=== PATIENT | female | born 1985 | race Caucasian/White ===

== ENCOUNTER → 2016-05-19 | Outpatient (CLI) | payer OTHER ==
[~2016-05-19] MED LIST: FLUO10CA19 PO; FLUO20TA28 PO
--- OUTSIDE RECORDS SUMMARY | 2016-05-19 12:35 | XMS REPORT | Continuity of Care Document ---
Author Author [facility] Organization [facility] Address Unknown Phone Unavailable Support Name Relationship Address Phone DANIELA CAMERON Caregiver [address] [place] [address] MINI TAVAREZ Caregiver [address] [place] [address] SHEPARDKYLEE Next Of Kin [address] [place] [address] Insurance Providers Payer Name Policy Number Subscriber Name Relationship Self Pay Pending Kym Apprv [id number] Elmira Crabtree 18 Self / Same As Patient Advance Directives Directive Response Recorded Date/Time Advance Directives No 05/08/14 1:15pm Health Care Power of Mica Plate Layer No 05/08/14 1:15pm Organ Donor No 05/08/14 1:15pm Problems No known problems or medical conditions. Medications Medication Dose Route Sig Days/Qty Instructions Order Date Discontinued Date Status Fluoxetine HCl (Prozac) 1 Each PO DAILY 05/08/14 Active Social History Social History Problem Response Recorded Date/Time Alcohol Use Denies Use 03/14/2014 5:47pm Recreational Drug Use No 03/14/2014 5:47pm Recent Foreign Travel N [place] 03/26/2014 1:31pm Hospital Discharge Instructions No hospital discharge instructions. Plan of Care No plan of care. Functional Status No functional status results. Allergies, Adverse Reactions, Alerts Allergen Type Severity Reaction Status Last Updated PEROXIDE Allergy Unknown Active 03/14/14 PLASTIC TAPE Allergy Unknown Active 03/14/14 Immunizations No immunization records. Vital Signs No known vital signs results. Results Laboratory Results Test Name Result Units Flags Reference Collection Date/Time Result Date/ Time Comments White Blood Count 5.5 10^3/uL 4.3-11.0 03/26/2014 1:53pm 03/26/2014 1: 57pm Red Blood Count 3.84 10^6/uL L 4.35-5.85 03/26/2014 1:53pm 03/26/2014 1: 57pm Hemoglobin 10.9 G/DL L 11.5-16.0 03/26/2014 1:53pm 03/26/2014 1:57pm Hematocrit 35 % 35-52 03/26/2014 1:53pm 03/26/2014 1:57pm Mean Corpuscular Volume 90 FL 80-99 03/26/2014 1:53pm 03/26/2014 1: 57pm Mean Corpuscular Hemoglobin 28 PG 25-34 03/26/2014 1:53pm 03/26/2014 1: 57pm Mean Corpuscular Hemoglobin Concent 32 G/DL 32-36 03/26/2014 1:53pm 1:57pm Red Cell Distribution Width 13.2 % 10.0-14.5 03/26/2014 1:53pm 2013 1:57pm Platelet Count 215 10^3/uL 130-400 03/26/2014 1:53pm 03/26/2014 1:57pm Mean Platelet Volume 10.1 FL 7.4-10.4 03/26/2014 1:53pm 03/26/2014 1: 57pm Neutrophils (%) (Auto) 60 % 42-75 03/26/2014 1:53pm 03/26/2014 1:57pm Lymphocytes (%) (Auto) 29 % 12-44 03/26/2014 1:53pm 03/26/2014 1:57pm Monocytes (%) (Auto) 8 % 0-12 03/26/2014 1:53pm 03/26/2014 1:57pm Eosinophils (%) (Auto) 2 % 0-10 03/26/2014 1:53pm 03/26/2014 1:57pm Basophils (%) (Auto) 0 % 0-10 03/26/2014 1:53pm 03/26/2014 1:57pm Neutrophils # (Auto) 3.3 X 10^3 1.8-7.8 03/26/2014 1:53pm 03/26/2014 1: 57pm Lymphocytes # (Auto) 1.6 X 10^3 1.0-4.0 03/26/2014 1:53pm 03/26/2014 1: 57pm Monocytes # (Auto) 0.5 X 10^3 0.0-1.0 03/26/2014 1:53pm 03/26/2014 1: 57pm Eosinophils # (Auto) 0.1 10^3/uL 0.0-0.3 03/26/2014 1:53pm 03/26/2014 1 :57pm Basophils # (Auto) 0.0 10^3/uL 0.0-0.1 03/26/2014 1:53pm 03/26/2014 1: 57pm Sodium Level 140 MMOL/L 135-145 03/26/2014 1:53pm 03/26/2014 2:31pm Potassium Level 3.6 MMOL/L 3.6-5.0 03/26/2014 1:53pm 03/26/2014 2:31pm Chloride Level 107 MMOL/L 98-107 03/26/2014 1:53pm 03/26/2014 2:31pm Carbon Dioxide Level 24 MMOL/L 21-32 03/26/2014 1:53pm 03/26/2014 2: 31pm Blood Urea Nitrogen 10 MG/DL 7-18 03/26/2014 1:53pm 03/26/2014 2:31pm Creatinine 0.70 MG/DL 0.60-1.30 03/26/2014 1:53pm 03/26/2014 2:31pm BUN/Creatinine Ratio 14 03/26/2014 1:53pm 03/26/2014 2:31pm Estimat Glomerular Filtration Rate > 60 03/26/2014 1:53pm 2013 2:31pm GFR INTERPRETIVE DATA UNITS FOR ESTIMATED GFR (eGFR): mL/min/1.73 M2 REFERENCE RANGE FOR ESTIMATED GFR (eGFR) eGFR NORMAL eGFR >60 MODERATELY DECREASED eGFR 30-59 SEVERLY DECREASED eGFR 15-29 KIDNEY FAILURE <15 (OR DIALYSIS) Glucose Level 92 MG/DL 70-105 03/26/2014 1:53pm 03/26/2014 2:31pm Calcium Level 8.6 MG/DL 8.5-10.1 03/26/2014 1:53pm 03/26/2014 2:31pm Total Bilirubin 0.6 MG/DL 0.1-1.0 03/26/2014 1:53pm 03/26/2014 2:31pm Alkaline Phosphatase 51 U/L 40-136 03/26/2014 1:53pm 03/26/2014 2:31pm Aspartate Amino Transf (AST/SGOT) 14 U/L 5-34 03/26/2014 1:53pm 2013 2:31pm Alanine Aminotransferase (ALT/SGPT) 11 U/L 0-55 03/26/2014 1:53pm 03/26 2:31pm Total Protein 6.6 G/DL 6.4-8.2 03/26/2014 1:53pm 03/26/2014 2:31pm Albumin 4.0 G/DL 3.2-4.5 03/26/2014 1:53pm 03/26/2014 2:31pm Procedures No known history of procedures. Encounters Encounter Location Date/Time Discharged Recurring Via [facility] 03/26/14 1:32pm
[2016-05-19 13:09] LABS: BASOPHILS % (AUTO) 1 % (0-10); EOSINOPHILS # (AUTO) 0.1 10^3/uL (0.0-0.3); EOSINOPHILS % (AUTO) 2 % (0-10); LYMPHOCYTES # (AUTO) 1.8 X 10^3 (1.0-4.0); LYMPHOCYTES % (AUTO) 36 % (12-44); MEAN CORPUSCULAR HEMOGLOBIN 29 PG (25-34); MEAN CORPUSCULAR HGB CONC 34 G/DL (32-36); MEAN CORPUSCULAR VOLUME 85 FL (80-99); MEAN PLATELET VOLUME 11.4 FL (7.4-10.4); MONOCYTES # (AUTO) 0.5 X 10^3 (0.0-1.0); MONOCYTES % (AUTO) 11 % (0-12); NEUTROPHILS # (AUTO) 2.6 X 10^3 (1.8-7.8); NEUTROPHILS % (AUTO) 51 % (42-75); PLATELET COUNT 154 10^3/uL (130-400); RED BLOOD COUNT 5.07 10^6/uL (4.35-5.85); RED CELL DISTRIBUTION WIDTH 12.9 % (10.0-14.5); WHITE BLOOD COUNT 5.1 10^3/uL (4.3-11.0)
[2016-05-19 14:24] LABS: ALANINE AMINOTRANSFERASE 12 U/L (0-55); ALBUMIN 4.3 G/DL (3.2-4.5); ANION GAP 8 MMOL/L (5-14); ASPARTATE AMINO TRANSFERASE 19 U/L (5-34); BILIRUBIN,TOTAL 0.8 MG/DL (0.1-1.0); BLOOD UREA NITROGEN 10 MG/DL (7-18); BUN/CREATININE RATIO 12; CALCIUM 8.9 MG/DL (8.5-10.1); CARBON DIOXIDE 26 MMOL/L (21-32); CHLORIDE 106 MMOL/L (98-107); CREATININE SERUM 0.84 MG/DL (0.60-1.30); GFR ESTIMATED > 60; GLUCOSE 86 MG/DL (70-105); SODIUM 140 MMOL/L (135-145)
[2016-05-19 14:45] LABS: THYROID STIMULATING HORMONE 1.83 UIU/ML (0.35-4.94)
== END ==
LOC: ONC 12:32
PROVIDERS: ATTEND Internal Medicine Hematology & Oncology
DX: Z08 Encounter for follow-up examination after completed treatment for malignant neoplasm (principal); Z85.038 Personal history of other malignant neoplasm of large intestine; Z86.010 Personal history of colon polyps; Z80.0 Family history of malignant neoplasm of digestive organs; Z92.21 Personal history of antineoplastic chemotherapy
CPT/HCPCS: 36415; 80053; 82378; 84443; 85025; 99213

== ENCOUNTER → 2016-06-02 | Outpatient (CLI) | payer OTHER ==
[~2016-06-02] MED LIST changes: +BARIUM SUSPENSION 2.1% (VANILLA SILQ) 450 ML PO ONE; +IOHEXOL 350 MG/ML 100 ML (OMNIPAQUE 350) VIAL IV ONE; +NS 100 ML (IVPB) BAG IV ONE
--- OUTSIDE RECORDS SUMMARY | 2016-06-02 10:23 | XMS REPORT | Continuity of Care Document ---
Author Author [facility] Organization [facility] Address Unknown Phone Unavailable Support Name Relationship Address Phone DANIELA CAMERON Caregiver [address] [place] [address] MINI TAVAREZ Caregiver [address] [place] [address] SHEPARD[place]LEE Next Of Kin [address] [place] [address] Insurance Providers Payer Name Policy Number Subscriber Name Relationship Self Pay Pending Kym Apprv [id number] Elmira Crabtree 18 Self / Same As Patient Advance Directives Directive Response Recorded Date/Time Advance Directives No 05/08/14 1:15pm Health Care Power of Marriage And Family Teacher No 05/08/14 1:15pm Organ Donor No 05/08/14 [...] Encounters Encounter Location Date/Time Discharged Recurring [facility] 03/26/14 1:32pm
--- NOTE | 2016-06-02 12:05 | Diagnostic Imaging Report ---
PROCEDURE: CT abdomen and pelvis with contrast. TECHNIQUE: Multiple contiguous axial images were obtained through the abdomen and pelvis after administration of intravenous contrast. INDICATION: Colorectal carcinoma. FINDINGS: The liver is homogeneous and is not enlarged. The liver appears similar to the prior CT abdomen/pelvis exam of 12/12/2010. The spleen, pancreas, adrenals, gallbladder, kidneys, aorta, and inferior vena cava are also unchanged when compared to the prior exam. The stomach is not well distended and consequently difficult to assess. The rectosigmoid portion of the colon is distended by gas, contrast, and fecal material. Surgical clips are also again seen about the rectosigmoid junction. As noted on the prior exam, the uterus is shifted to the right. There is no mass involving the uterus. There may be a few small cysts arising from both ovaries. These seem similar to the prior exam. The urinary bladder is grossly unremarkable. There is no pelvic mass or free fluid collection noted. The appendix was not well visualized, but there are no indirect signs of acute appendicitis. The lung bases are clear. The bone windows show no sign of a fracture or of a destructive lesion. IMPRESSION: 1. There is no acute abnormality of the abdomen or pelvis. There is no sign of metastatic disease either. 2. When compared to the previous study, there does not appear to have been any significant change. Dictated by: Dictated on workstation # [id number]
--- NOTE | 2016-06-02 12:47 | Diagnostic Imaging Report ---
PROCEDURE: US Thyroid. TECHNIQUE: Multiple real-time grayscale images were obtained of the thyroid in various projections. INDICATION: Abnormal Thyroid laboratory values. FINDINGS: There are no previous thyroid ultrasound examinations available for comparison. In reviewing the CT chest exam of 12/12/2010, the thyroid gland did not seem to be enlarged and there was no definite discrete mass involving either lobe. On this study, the thyroid gland is not enlarged. The right lobe measures 4.9 x 1.3 x 1.4 cm while the left lobe is estimated to be 4.8 x 1.5 x 1.3 cm (normal 4-5 x 2 x 2 cm or less). There are small subcentimeter hypoechoic areas in each lobe of the thyroid. This includes a 3 x 4 x 3 mm hypoechoic area in the midportion of the right lobe and a 7 x 5 x 6 mm hypoechoic area in the midportion of the left lobe. These hypoechoic areas are of uncertain etiology but most likely benign. If further evaluation is desired, then a short-term (6-month) follow-up thyroid ultrasound exam should be obtained. IMPRESSION: The thyroid gland is not enlarged. The small subcentimeter hypoechoic lesions in each lobe of the thyroid are of uncertain etiology although most likely benign. Recommendations as above. Dictated by: Dictated on workstation # [id number]
== END ==
LOC: RAD 10:19
PROVIDERS: ATTEND Nurse Practitioner Adult Health
DX: C18.7 Malignant neoplasm of sigmoid colon (principal); D12.6 Benign neoplasm of colon, unspecified
CPT/HCPCS: 74177; 76536

== ENCOUNTER 2016-08-03 11:00 | Outpatient (CLI) | payer SELFPAY ==
[~2016-08-03] VITALS: Ht 167.6 cm; Wt 86.2 kg
[~2016-08-03 11:00] MED LIST changes: -BARIUM SUSPENSION 2.1% (VANILLA SILQ) 450 ML PO ONE; -IOHEXOL 350 MG/ML 100 ML (OMNIPAQUE 350) VIAL IV ONE; -NS 100 ML (IVPB) BAG IV ONE
== END 2016-08-03 12:26 ==
LOC: PREOP 11:00
PROVIDERS: ATTEND Surgery
DX: Z01.818 Encounter for other preprocedural examination (principal); Z85.038 Personal history of other malignant neoplasm of large intestine

== ENCOUNTER 2016-08-04 07:15 | Day surgery (SDC) | payer OTHER ==
[~2016-08-04] VITALS: Ht 167.6 cm; Wt 86.2 kg
[2016-08-04] MEDS ORDERED: NS IV 1000 ML 1,000 ML IV STA (07:21)
[2016-08-04] MEDS ORDERED: HURRICAINE EXT TUBE (BENZOCAINE) XX PRN (07:30)
[2016-08-04 07:31] VITALS: BP 131/87
[2016-08-04] MEDS ORDERED: MIDAZOLAM 2 MG/2 ML (VERSED) VIAL ONE (07:33)
[2016-08-04] MEDS ORDERED: proPOfol 200 MG/20 ML (DIPRIVAN) VIAL IV ONE (07:33)
--- NOTE | 2016-08-04 07:37 | Progress Note-Pre Operative ---
Pre-Operative Progress Note H&P Reviewed The H&P was reviewed, patient examined and no changes noted. Date H&P Reviewed: Aug 04, 2016 Time H&P Reviewed: 07:37 Pre-Operative Diagnosis: history colon cancer, fap + gene STAR MARQUEZ DO Aug 04, 2016 07:37
--- NOTE | 2016-08-04 08:15 | Progress Note-Post Operative ---
Post-Operative Progess Note Surgeon (s)/Charge Aide (s) Surgeon STAR MARQUEZ DO Charge Aide: none Pre-Operative Diagnosis history colon cancer, fap + gene Post-Operative Diagnosis hiatal hernia, slight inflammation at anastamosis Post-Op Procedure Note Date of Procedure: Aug 04, 2016 Name of Procedure Performed: egd c biopsy flex sig with cold biopsy Description of the Procedure: see note Findings of the Procedure see note Anesthesia Type per reproducer Estimated blood loss (mL): none Specimen(s) collected/removed distal esophagus, j pouch suture line STAR MARQUEZ DO Aug 04, 2016 08:15
--- NOTE | 2016-08-04 08:16 | Discharge Inst-Simple/Standard ---
Discharge Inst-Standard Patient Instructions/Follow Up Plan of Care/Instructions/FU: 2 weeks Johnathan Activity as Tolerated: Yes Discharge Diet: Regular Diet STAR MARQUEZ DO Aug 04, 2016 08:16
[2016-08-04 08:35] VITALS: BP 126/76
[2016-08-04 09:00] VITALS: BP 117/81
[2016-08-04] MEDS ORDERED: HURRICAINE EXT TUBE (BENZOCAINE) ONE (09:12)
[2016-08-04 09:15] VITALS: BP 117/81
--- NOTE | 2016-08-04 10:00 | OPERATIVE REPORT ---
PROCEDURE PHYSICIAN: STAR MANN DATE OF PROCEDURE: 08/04/2016 PREOPERATIVE DIAGNOSES: 1. History of colon cancer. 2. FAP positive. PROCEDURE: 1. EGD. 2. Flexible sigmoidoscopy with biopsies. SURGEON: Dr. Mann. ANESTHESIA: Per PUBLIC AFFAIRS DIRECTOR. ESTIMATED BLOOD LOSS: None. COMPLICATIONS: None. INDICATIONS: The patient is a 31-year-old female with history of colon cancer. She has FAP gene. It has been requested that an EGD and lower endoscopy be performed. She understands the risks and benefits of the procedure and wishes to proceed with procedure. Consent was signed on chart. PROCEDURE: The patient was taken the endoscopy suite, placed in left lateral recumbent position. Timeout was performed. The scope was then inserted in the mouth, down the esophagus, stomach and into the duodenum without any difficulty. There were no polyps, masses or ulcerations within the duodenum. The scope was slowly retracted back the stomach where it was further insufflated. There were no polyps, masses, ulcerations or erythematous changes present. The scope was retroflexed noting a small to moderate sized hiatal hernia. The scope was returned to its normal position slowly withdrawn. A biopsy of the distal esophagus was performed with appearance of maybe some slight erythematous changes. The scope was continued be slowly retracted back noting no other pathology. COLONOSCOPY: Digital rectal exam was performed. There is no palpable polyps, masses or ulcerations on digital rectal exam. The scope was inserted into the anus and into the rectum. There was a J-pouch present. Copious amounts of irrigation was used to irrigate the area. There were no polyps, masses, ulcerations within the J-pouch. The scope was continued to be inserted into the small bowel noting no other pathology. We went to approximately 30 cm. The scope was then slowly retracted back noting no other pathology. The J-pouch staple line at the anastomosis area, there was some inflammation present around some visualized martita. A biopsy was obtained. No other pathology noted. The scope was slowly retracted until completely removed. The patient tolerated the procedure well without any complications. She follow-up in the office in 2 weeks to discuss pathology results. The patient will need repeat endoscopy in 6 to 12 months. Job ID: [id number] Dictated Date: 08/04/2016 08:20:04 Salvage Grinder Date: 08/04/2016 09:50:47 / bert
--- OUTSIDE RECORDS SUMMARY | 2016-08-18 20:18 | XMS REPORT | Continuity of Care Document ---
Author Author [facility] Address Unknown Phone Unavailable Allergies Active Description Code Type Severity Reaction Onset Reported/Identified Relationship to Patient Clinical Status Yes peroxide OA N/A N/A 07/11/2008 Yes plastic tape OA N/A N/A 07/11/2008 Yes PEROXIDE PEROXIDE Unknown N/A 03/14/2014 Yes PLASTIC TAPE PLASTIC TAPE Unknown N/A 03/14/2014 Medications Problems Date Dx Coded Attending Type Code Diagnosis Diagnosed By 02/16/2008 RAKESH NAIK, DANIELA L 924.9 BRUISE/CONTUSION UNSPECIFIED SITE 02/16/2008 KRYSTYNA LOCK APRN A 924.9 BRUISE/CONTUSION UNSPECIFIED SITE 02/16/2008 ELHAM GUNN MD 924.9 BRUISE/CONTUSION UNSPECIFIED SITE 02/16/2008 MADL RN OSTOMY, DANIELA L 924.9 BRUISE/CONTUSION UNSPECIFIED SITE 02/16/2008 MADL RN OSTOMY, DANIELA L 924.9 BRUISE/CONTUSION UNSPECIFIED SITE 02/16/2008 MADL RN OSTOMY, DANIELA L 924.9 BRUISE/CONTUSION UNSPECIFIED SITE 02/16/2008 MADL RN OSTOMY, DANIELA L 924.9 BRUISE/CONTUSION UNSPECIFIED SITE 02/16/2008 MADL RN OSTOMY, DANIELA L 924.9 BRUISE/CONTUSION UNSPECIFIED SITE 07/11/2008 MADL RN OSTOMY, DANIELA L 625.9 FEMALE PELVIC PAIN 07/11/2008 KRYSTYNA LOCK APRN A 625.9 FEMALE PELVIC PAIN 07/11/2008 ELHAM GUNN MD 625.9 FEMALE PELVIC PAIN 07/11/2008 MADL RN OSTOMY, DANIELA L 625.9 FEMALE PELVIC PAIN 07/11/2008 MADL RN OSTOMY, DANIELA L 625.9 FEMALE PELVIC PAIN 07/11/2008 MADL RN OSTOMY, DANIELA L 625.9 FEMALE PELVIC PAIN 07/11/2008 MADL RN OSTOMY, DANIELA L 625.9 FEMALE PELVIC PAIN 07/11/2008 MADL RN OSTOMY, DANIELA L 625.9 FEMALE PELVIC PAIN 09/28/2008 MADL RN OSTOMY, DANIELA L V72.31 Pelvic Exam (Internal) 09/28/2008 MADL RN OSTOMY, DANIELA L V74.5 visit for: screening exam bact/spirochetal venereal disease 09/28/2008 ASHVIN RN OSTOMY, KRYSTYNA A V72.31 Pelvic Exam (Internal) 09/28/2008 ASHVIN RN OSTOMY, KRYSTYNA A V74.5 visit for: screening exam bact/ spirochetal venereal disease 09/28/2008 ELHAM GUNN MD N V72.31 Pelvic Exam (Internal) 09/28/2008 ELHAM GUNN MD N V74.5 visit for: screening exam bact/spirochetal venereal disease 09/28/2008 MADL RN OSTOMY, DANIELA L V72.31 Pelvic Exam (Internal) 09/28/2008 MIRTAL RN OSTOMY, DANIELA L V74.5 visit for: screening exam bact/spirochetal venereal disease 09/28/2008 MADL RN OSTOMY, DANIELA L V72.31 Pelvic Exam (Internal) 09/28/2008 MADL RN OSTOMY, DANIELA L V74.5 visit for: screening exam bact/spirochetal venereal disease 09/28/2008 MADL RN OSTOMY, DANIELA L V72.31 Pelvic Exam (Internal) 09/28/2008 MADL RN OSTOMY, DANIELA L V74.5 visit for: screening exam bact/spirochetal venereal disease 09/28/2008 MADL RN OSTOMY, DANIELA L V72.31 Pelvic Exam (Internal) 09/28/2008 MADL RN OSTOMY, DANIELA L V74.5 visit for: screening exam bact/spirochetal venereal disease 09/28/2008 MADL RN OSTOMY, DANIELA L V72.31 Pelvic Exam (Internal) 09/28/2008 MADL RN OSTOMY, DANIELA L V74.5 visit for: screening exam bact/spirochetal venereal disease 03/30/2011 Ot 211.3 BENIGN NEOPLASM LG BOWEL 03/30/2011 Ot V10.05 HX OF COLONIC MALIGNANCY 03/30/2011 Ot V67.09 SURGERY FOLLOW-UP, OTHER SURGERY 01/19/2014 MADL RN OSTOMY, DANIELA L 154.0 MALIGNANT NEOPLASM OF RECTOSIGMOID JUNCTION 01/19/2014 MADL RN OSTOMY, DANIELA L 477.9 ALLERGIC RHINITIS CAUSE UNSPECIFIED 01/19/2014 ASHVINKRYSTYNA MOURA APRN A 154.0 MALIGNANT NEOPLASM OF RECTOSIGMOID JUNCTION 01/19/2014 ASHVINKRYSTYNA Argueta APRN A 477.9 ALLERGIC RHINITIS CAUSE UNSPECIFIED 01/19/2014 ELHAM GUNN MD N 154.0 MALIGNANT NEOPLASM OF RECTOSIGMOID JUNCTION 01/19/2014 ELHAM GUNN MD N 477.9 ALLERGIC RHINITIS CAUSE UNSPECIFIED 01/19/2014 MADL RN OSTOMY, DANIELA L 154.0 MALIGNANT NEOPLASM OF RECTOSIGMOID JUNCTION 01/19/2014 MADL RN OSTOMY, DANIELA L 477.9 ALLERGIC RHINITIS CAUSE UNSPECIFIED 01/19/2014 MADL RN OSTOMY, DANIELA L 154.0 MALIGNANT NEOPLASM OF RECTOSIGMOID JUNCTION 01/19/2014 MADL RN OSTOMY, DANIELA L 477.9 ALLERGIC RHINITIS CAUSE UNSPECIFIED 01/19/2014 MADL RN OSTOMY, DANIELA L 154.0 MALIGNANT NEOPLASM OF RECTOSIGMOID JUNCTION 01/19/2014 MADL RN OSTOMY, DANIELA L 477.9 ALLERGIC RHINITIS CAUSE UNSPECIFIED 01/19/2014 MADL RN OSTOMY, DANIELA L 154.0 MALIGNANT NEOPLASM OF RECTOSIGMOID JUNCTION 01/19/2014 MADL RN OSTOMY, DANIELA L 477.9 ALLERGIC RHINITIS CAUSE UNSPECIFIED 01/19/2014 MADL RN OSTOMY, DANIELA L 154.0 MALIGNANT NEOPLASM OF RECTOSIGMOID JUNCTION 01/19/2014 MADL RN OSTOMY, DANIELA L 477.9 ALLERGIC RHINITIS CAUSE UNSPECIFIED 01/30/2014 KRYSTYNA LOCK APRN A V26.9 PROCREATIVE MANAGEMENT 01/30/2014 KRYSTYNA LOCK APRN V76.10 BREAST CANCER SCREENING 01/30/2014 ASHVIN RN OSTOMY, KRYSTYNA A V76.2 CERVICAL CANCER SCREENING (PAP SMEAR) 01/30/2014 ELHAM GUNN MD N V26.9 PROCREATIVE MANAGEMENT 01/30/2014 ELHAM GUNN MD V76.10 BREAST CANCER SCREENING 01/30/2014 ELHAM GUNN MD N V76.2 CERVICAL CANCER SCREENING (PAP SMEAR) 01/30/2014 MADL RN OSTOMY, DANIELA L V26.9 PROCREATIVE MANAGEMENT 01/30/2014 MADL RN OSTOMY, DANIELA L V76.10 BREAST CANCER SCREENING 01/30/2014 MADL RN OSTOMY, DANIELA L V76.2 CERVICAL CANCER SCREENING (PAP SMEAR) 01/30/2014 MADL RN OSTOMY, DANIELA L V26.9 PROCREATIVE MANAGEMENT 01/30/2014 MADL RN OSTOMY, DANIELA L V76.10 BREAST CANCER SCREENING 01/30/2014 MADL RN OSTOMY, DANIELA L V76.2 CERVICAL CANCER SCREENING (PAP SMEAR) 01/30/2014 MADL RN OSTOMY, DANIELA L V26.9 PROCREATIVE MANAGEMENT 01/30/2014 MADL RN OSTOMY, DANIELA L V76.10 BREAST CANCER SCREENING 01/30/2014 MADL RN OSTOMY, DANIELA L V76.2 CERVICAL CANCER SCREENING (PAP SMEAR) 01/30/2014 MADL RN OSTOMY, DANIELA L V26.9 PROCREATIVE MANAGEMENT 01/30/2014 MADL RN OSTOMY, DANIELA L V76.10 BREAST CANCER SCREENING 01/30/2014 MADL RN OSTOMY, DANIELA L V76.2 CERVICAL CANCER SCREENING (PAP SMEAR) 01/30/2014 MADL RN OSTOMY, DANIELA L V26.9 PROCREATIVE MANAGEMENT 01/30/2014 MADL RN OSTOMY, DANIELA L V76.10 BREAST CANCER SCREENING 01/30/2014 MADL RN OSTOMY, DANIELA L V76.2 CERVICAL CANCER SCREENING (PAP SMEAR) 02/27/2014 ELHAM GUNN MD 795.04 ABNORMAL PAP - HGSIL 02/27/2014 MADL RN OSTOMY, DANIELA L 795.04 ABNORMAL PAP - HGSIL 02/27/2014 MADL RN OSTOMY, DANIELA L 795.04 ABNORMAL PAP - HGSIL 02/27/2014 MADL RN OSTOMY, DANIELA L 795.04 ABNORMAL PAP - HGSIL 02/27/2014 MADL RN OSTOMY, DANIELA L 795.04 ABNORMAL PAP - HGSIL 02/27/2014 MADL RN OSTOMY, DANIELA L 795.04 ABNORMAL PAP - HGSIL 03/15/2014 DESTINI SMITH DO Ot 998.11 HEMOR COMPLIC A PROCEDURE 03/19/2014 MADL RN OSTOMY, DANIELA L 780.79 WEAKNESS 03/19/2014 MADL RN OSTOMY, DANIELA L 780.79 WEAKNESS 03/19/2014 MADL RN OSTOMY, DANIELA L 780.79 WEAKNESS 03/19/2014 MADL RN OSTOMY, DANIELA L 780.79 WEAKNESS 03/19/2014 MADL RN OSTOMY, DANIELA L 780.79 WEAKNESS 04/02/2014 MADL RN OSTOMY, DANIELA L 285.9 ANEMIA UNSPECIFIED 04/02/2014 MADL RN OSTOMY, DANIELA L 300.4 DYSTHYMIC DISORDER 04/02/2014 MADL RN OSTOMY, DANIELA L 285.9 ANEMIA UNSPECIFIED 04/02/2014 MADL RN OSTOMY, DANIELA L 300.4 DYSTHYMIC DISORDER 04/02/2014 MADL RN OSTOMY, DANIELA L 285.9 ANEMIA UNSPECIFIED 04/02/2014 MADL RN OSTOMY, DANIELA L 300.4 DYSTHYMIC DISORDER 04/02/2014 MADL RN OSTOMY, DANIELA L 285.9 ANEMIA UNSPECIFIED 04/02/2014 MADL RN OSTOMY, DANIELA L 300.4 DYSTHYMIC DISORDER 04/10/2014 MADL RN OSTOMY, DANIELA L 536.8 DYSPEPSIA AND OTHER SPECIFIED DISORDERS OF FUNCTION OF STOMACH 04/10/2014 MADL RN OSTOMY, DANIELA L 787.01 NAUSEA WITH VOMITING 04/10/2014 MADL RN OSTOMY, DANIELA L 536.8 DYSPEPSIA AND OTHER SPECIFIED DISORDERS OF FUNCTION OF STOMACH 04/10/2014 MADL RN OSTOMY, DANIELA L 787.01 NAUSEA WITH VOMITING 04/10/2014 MADL RN OSTOMY, DANIELA L 536.8 DYSPEPSIA AND OTHER SPECIFIED DISORDERS OF FUNCTION OF STOMACH 04/10/2014 DANIELA CAMERON APRN L 787.01 NAUSEA WITH VOMITING 05/07/2014 Ot 153.9 05/07/2014 Ot 620.2 05/07/2014 Ot 153.9 05/07/2014 Ot 153.9 05/07/2014 Ot 153.9 05/07/2014 Ot 153.9 05/07/2014 Ot 153.9 05/07/2014 Ot 153.9 05/07/2014 ALLEN RIOS, TERESA Ot 153.9 05/07/2014 ALLEN RIOS, TERESA Ot 153.9 05/07/2014 MINI TAVAREZ Ot V10.05 05/07/2014 STAR MARQUEZ DO Ot V72.84 05/08/2014 MINI TAVAREZ Ot V10.05 05/08/2014 MINI TAVAREZ Ot V10.05 05/08/2014 STAR MARQUEZ DO Ot V10.05 HX OF COLONIC MALIGNANCY 05/08/2014 STAR MARQUEZ DO Ot V67.09 SURGERY FOLLOW-UP, OTHER SURGERY 06/15/2014 Ot 153.9 06/15/2014 Ot 153.9 06/15/2014 Ot 153.9 06/15/2014 Ot 153.9 06/15/2014 Ot 153.9 06/15/2014 Ot 153.9 06/15/2014 ALLEN RIOS, TERESA Ot 153.9 06/15/2014 ALLEN RIOS, TERESA Ot 153.9 06/15/2014 MINI TAVAREZ Ot V10.05 06/15/2014 STAR MARQUEZ DO Ot V72.84 06/15/2014 ALLEN RIOS, TERESA Ot 153.9 06/21/2014 ALLEN RIOS, TERESA Ot 153.9 06/24/2014 MINI TAVAREZ Ot V10.05 HX OF COLONIC MALIGNANCY 08/15/2014 DANIELA CAMERON APRN L 461.8 OTHER ACUTE SINUSITIS 08/15/2014 DANIELA CAMERON APRN L 465.9 UPPER RESPIRATORY INFECTION 03/25/2015 MINI TAVAREZ Ot V10.05 07/16/2015 Ot 153.9 07/16/2015 Ot 153.9 07/16/2015 Ot 153.9 07/16/2015 ALLEN RIOS, TERESA Ot 153.9 07/16/2015 ALLEN RIOS, TERESA Ot 153.9 07/16/2015 STAR MARQUEZ DO Ot V72.84 07/16/2015 MINI TAVAREZ Ot V10.05 07/16/2015 DONNA VEGA BREAKER LAYER Ot Z08 07/16/2015 DONNA VEGA BREAKER LAYER Ot Z80.0 07/16/2015 DONNA VEGA BREAKER LAYER Ot Z85.038 07/16/2015 DONNA VEGA BREAKER LAYER Ot Z92.21 07/19/2015 STAR MARQUEZ DO Ot Z01.818 ENCOUNTER FOR OTHER PREPROCEDURAL EXAMIN 07/23/2015 Ot 153.9 07/23/2015 Ot 153.9 07/23/2015 Ot 153.9 07/23/2015 ALLEN RIOS, TERESA Ot 153.9 07/23/2015 ALLEN RIOS, TERESA Ot 153.9 07/23/2015 STAR MARQUEZ DO Ot V72.84 07/23/2015 MINI TAVAREZ Ot V10.05 07/23/2015 DONNA VEGA BREAKER LAYER Ot Z08 07/23/2015 DONNA VEGA BREAKER LAYER Ot Z80.0 07/23/2015 DONNA VEGA BREAKER LAYER Ot Z85.038 07/23/2015 DONNA VEGA BREAKER LAYER Ot Z92.21 07/23/2015 STAR MARQUEZ DO Ot Z08 ENCNTR FOR FOLLOW-UP EXAM AFTER TRTMT FO 07/23/2015 STAR MARQUEZ DO Ot Z85.048 PRSNL HX OF MALIG NEOPLM OF RECTUM, RECT 07/23/2015 STAR MARQUEZ DO Ot Z98.0 INTESTINAL BYPASS AND ANASTOMOSIS STATUS 07/24/2015 STAR MARQUEZ DO Ot Z08 07/24/2015 STAR MARQUEZ DO Ot Z85.048 07/24/2015 STAR MARQUEZ DO Ot Z98.0 07/27/2015 STAR MARQUEZ DO Ot Z08 07/27/2015 STAR MARQUEZ DO Ot Z85.048 07/27/2015 STAR MARQUEZ DO Ot Z98.0 08/01/2015 [facility], STAR D Ot Z08 08/01/2015 [facility], STAR Bucio Ot Z85.048 08/01/2015 [facility], STAR D Ot Z98.0 05/19/2016 Ot 153.9 MALIGNANT ETTA COLON NOS 05/19/2016 Ot 153.9 MALIGNANT ETTA COLON NOS 05/19/2016 ALLEN RIOS, TERESA Ot 153.9 MALIGNANT ETTA COLON NOS 05/19/2016 ALLEN RIOS, TERESA Ot 153.9 MALIGNANT ETTA COLON NOS 05/19/2016 [facility] V72.84 EXAM PRE-OPERATIVE NOS 05/19/2016 MINI TAVAREZ Ot V10.05 05/19/2016 DONNA VEGA BREAKER LAYER Ot Z08 ENCNTR FOR FOLLOW-UP EXAM AFTER TRTMT FO 05/19/2016 DONNA VEGA BREAKER LAYER Ot Z80.0 FAMILY HISTORY OF MALIGNANT NEOPLASM OF 05/19/2016 DONNA VEGA BREAKER LAYER Ot Z85.038 PERSONAL HISTORY OF MALIGNANT NEOPLASM O 05/19/2016 DONNA VEGA BREAKER LAYER Ot Z92.21 PERSONAL HISTORY OF ANTINEOPLASTIC CHEMO 05/25/2016 MINI TAVAREZ Ot Z08 ENCNTR FOR FOLLOW-UP EXAM AFTER TRTMT FO 05/25/2016 MINI TAVAREZ Ot Z80.0 FAMILY HISTORY OF MALIGNANT NEOPLASM OF 05/25/2016 MINI TAVAREZ Ot Z85.038 PERSONAL HISTORY OF MALIGNANT NEOPLASM O 05/25/2016 MINI TAVAREZ Ot Z86.010 PERSONAL HISTORY OF COLONIC POLYPS 05/25/2016 MINI TAVAREZ Ot Z92.21 PERSONAL HISTORY OF ANTINEOPLASTIC CHEMO 05/28/2016 Ot 153.9 MALIGNANT ETTA COLON NOS 05/28/2016 Ot 153.9 MALIGNANT ETTA COLON NOS 05/28/2016 ALLEN RIOS, TERESA Ot 153.9 MALIGNANT ETTA COLON NOS 05/28/2016 ALLEN RIOS, TERESA Ot 153.9 MALIGNANT ETTA COLON NOS 05/28/2016 [facility] V72.84 EXAM PRE-OPERATIVE NOS 05/28/2016 MINI TAVAREZ Ot V10.05 05/28/2016 DONNA VEGA BREAKER LAYER Ot Z08 ENCNTR FOR FOLLOW-UP EXAM AFTER TRTMT FO 05/28/2016 DONNA VEGA BREAKER LAYER Ot Z80.0 FAMILY HISTORY OF MALIGNANT NEOPLASM OF 05/28/2016 DONNA VEGA BREAKER LAYER Ot Z85.038 PERSONAL HISTORY OF MALIGNANT NEOPLASM O 05/28/2016 DONNA VEGA BREAKER LAYER Ot Z92.21 PERSONAL HISTORY OF ANTINEOPLASTIC CHEMO 05/28/2016 MINI TAVAREZ N Ot Z08 ENCNTR FOR FOLLOW-UP EXAM AFTER TRTMT FO 05/28/2016 MINI TAVAREZ N Ot Z80.0 FAMILY HISTORY OF MALIGNANT NEOPLASM OF 05/28/2016 MINI TAVAREZ N Ot Z85.038 PERSONAL HISTORY OF MALIGNANT NEOPLASM O 05/28/2016 MINI TAVAREZ N Ot Z86.010 PERSONAL HISTORY OF COLONIC POLYPS 05/28/2016 MINI TAVAREZ N Ot Z92.21 PERSONAL HISTORY OF ANTINEOPLASTIC CHEMO 05/28/2016 DONNA VEGA BREAKER LAYER Ot Z08 ENCNTR FOR FOLLOW-UP EXAM AFTER TRTMT FO 05/28/2016 DONNA VEGA BREAKER LAYER Ot Z85.038 PERSONAL HISTORY OF MALIGNANT NEOPLASM O 05/28/2016 DONNA VEGA BREAKER LAYER Ot Z92.21 PERSONAL HISTORY OF ANTINEOPLASTIC CHEMO 05/28/2016 DONNA VEGA BREAKER LAYER Ot Z08 ENCNTR FOR FOLLOW-UP EXAM AFTER TRTMT FO 05/28/2016 DONNA VEGA BREAKER LAYER Ot Z80.0 FAMILY HISTORY OF MALIGNANT NEOPLASM OF 05/28/2016 DONNA VEGA BREAKER LAYER Ot Z85.038 PERSONAL HISTORY OF MALIGNANT NEOPLASM O 05/28/2016 DONNA VEGA BREAKER LAYER Ot Z92.21 PERSONAL HISTORY OF ANTINEOPLASTIC CHEMO 05/29/2016 DONNA VEGA BREAKER LAYER Ot Z08 ENCNTR FOR FOLLOW-UP EXAM AFTER TRTMT FO 05/29/2016 DONNA VEGA BREAKER LAYER Ot Z85.038 PERSONAL HISTORY OF MALIGNANT NEOPLASM O 05/29/2016 DONNA VEAG BREAKER LAYER Ot Z92.21 PERSONAL HISTORY OF ANTINEOPLASTIC CHEMO 06/02/2016 Ot 153.9 MALIGNANT ETTA COLON NOS 06/02/2016 Ot 153.9 MALIGNANT ETTA COLON NOS 06/02/2016 TERESA VILLA MD Ot 153.9 MALIGNANT ETTA COLON NOS 06/02/2016 ALLEN RIOS, TERESA Ot 153.9 MALIGNANT ETTA COLON NOS 06/02/2016 STAR MARQUEZ DO Ot V72.84 EXAM PRE-OPERATIVE NOS 06/02/2016 MINI TAVAREZ Ot V10.05 06/02/2016 DONNA VEGA BREAKER LAYER Ot Z08 ENCNTR FOR FOLLOW-UP EXAM AFTER TRTMT FO 06/02/2016 DONNA VEGA BREAKER LAYER Ot Z85.038 PERSONAL HISTORY OF MALIGNANT NEOPLASM O 06/02/2016 DONNA VEGA BREAKER LAYER Ot Z92.21 PERSONAL HISTORY OF ANTINEOPLASTIC CHEMO 06/02/2016 DONNA VEGA BREAKER LAYER Ot Z08 ENCNTR FOR FOLLOW-UP EXAM AFTER TRTMT FO 06/02/2016 DONNA VEGA BREAKER LAYER Ot Z80.0 FAMILY HISTORY OF MALIGNANT NEOPLASM OF 06/02/2016 DONNA VEGA BREAKER LAYER Ot Z85.038 PERSONAL HISTORY OF MALIGNANT NEOPLASM O 06/02/2016 DONNA VEGA BREAKER LAYER Ot Z92.21 PERSONAL HISTORY OF ANTINEOPLASTIC CHEMO 06/02/2016 MINI TAVAREZ Ot Z08 ENCNTR FOR FOLLOW-UP EXAM AFTER TRTMT FO 06/02/2016 MINI TAVAREZ Ot Z80.0 FAMILY HISTORY OF MALIGNANT NEOPLASM OF 06/02/2016 MINI TAVAREZ Ot Z85.038 PERSONAL HISTORY OF MALIGNANT NEOPLASM O 06/02/2016 IMNI TAVAREZ Ot Z86.010 PERSONAL HISTORY OF COLONIC POLYPS 06/02/2016 MINI TAVAREZ Ot Z92.21 PERSONAL HISTORY OF ANTINEOPLASTIC CHEMO 06/03/2016 DONNA VEGA BREAKER LAYER Ot C18.7 MALIGNANT NEOPLASM OF SIGMOID COLON 06/03/2016 DONNA VEGA BREAKER LAYER Ot D12.6 BENIGN NEOPLASM OF COLON, UNSPECIFIED 06/25/2016 MINI TAVAREZ Ot Z08 ENCNTR FOR FOLLOW-UP EXAM AFTER TRTMT FO 06/25/2016 MINI TAVAREZ Ot Z80.0 FAMILY HISTORY OF MALIGNANT NEOPLASM OF 06/25/2016 MINI TAVAREZ Ot Z85.038 PERSONAL HISTORY OF MALIGNANT NEOPLASM O 06/25/2016 MINI TAVAREZ Ot Z86.010 PERSONAL HISTORY OF COLONIC POLYPS 06/25/2016 DAYSI, BOBAN N Ot Z92.21 PERSONAL HISTORY OF ANTINEOPLASTIC CHEMO 06/25/2016 DONNA VEGAP Ot Z08 ENCNTR FOR FOLLOW-UP EXAM AFTER TRTMT FO 06/25/2016 DONNA VEGA Ot Z80.0 FAMILY HISTORY OF MALIGNANT NEOPLASM OF 06/25/2016 DONNA VEGA BREAKER LAYER Ot Z85.038 PERSONAL HISTORY OF MALIGNANT NEOPLASM O 06/25/2016 DONNA VEGAP Ot Z92.21 PERSONAL HISTORY OF ANTINEOPLASTIC CHEMO 06/25/2016 DONNA VEGA Ot Z08 ENCNTR FOR FOLLOW-UP EXAM AFTER TRTMT FO 06/25/2016 DONNA VEGA Ot Z85.038 PERSONAL HISTORY OF MALIGNANT NEOPLASM O 06/25/2016 DONNA VEGA Ot Z92.21 PERSONAL HISTORY OF ANTINEOPLASTIC CHEMO 06/26/2016 STAR MARQUEZ DO Ot Z08 ENCNTR FOR FOLLOW-UP EXAM AFTER TRTMT FO 06/26/2016 STAR MARQUEZ DO Ot Z85.048 PRSNL HX OF MALIG NEOPLM OF RECTUM, RECT 06/26/2016 STAR MARQUEZ DO Ot Z98.0 INTESTINAL BYPASS AND ANASTOMOSIS STATUS 07/31/2016 STAR MARQUEZ DO Ot Z01.818 ENCOUNTER FOR OTHER PREPROCEDURAL EXAMIN 07/31/2016 STAR MARQUEZ DO Ot Z85.038 PERSONAL HISTORY OF MALIGNANT NEOPLASM O 08/03/2016 STAR MARQUEZ DO Ot Z01.818 ENCOUNTER FOR OTHER PREPROCEDURAL EXAMIN 08/03/2016 STAR MARQUEZ DO Ot Z85.038 PERSONAL HISTORY OF MALIGNANT NEOPLASM O 08/04/2016 STAR MARQUEZ DO Ot K44.9 DIAPHRAGMATIC HERNIA WITHOUT OBSTRUCTION 08/04/2016 STAR MARQUEZ DO Ot Z08 ENCNTR FOR FOLLOW-UP EXAM AFTER TRTMT FO 08/04/2016 STAR MARQUEZ DO Ot Z80.0 FAMILY HISTORY OF MALIGNANT NEOPLASM OF 08/04/2016 STAR MARQUEZ DO Ot Z85.038 PERSONAL HISTORY OF MALIGNANT NEOPLASM O 08/05/2016 DONNA VEGAP Ot C18.7 MALIGNANT NEOPLASM OF SIGMOID COLON 08/05/2016 DONNA VEGAP Ot D12.6 BENIGN NEOPLASM OF COLON, UNSPECIFIED 08/07/2016 STAR MARQUEZ DO Ot D12.6 BENIGN NEOPLASM OF COLON, UNSPECIFIED 08/07/2016 STAR MARQUEZ DO Ot K44.9 DIAPHRAGMATIC HERNIA WITHOUT OBSTRUCTION 08/07/2016 STAR MARQUEZ DO Ot Z08 ENCNTR FOR FOLLOW-UP EXAM AFTER TRTMT FO 08/07/2016 STAR MARQUEZ DO Ot Z80.0 FAMILY HISTORY OF MALIGNANT NEOPLASM OF 08/07/2016 STAR MARQUEZ DO Ot Z85.038 PERSONAL HISTORY OF MALIGNANT NEOPLASM O Procedures Code Description Performed By Performed On MEDICAL O VIA [facility], 01/19/2014 80239 PAP SMEAR 2013 Q0091 PAP SMEAR OBTAIN SMEAR 01/30/2014 47365 TEST, URINE (IN-HOUSE) 02/27/2014 76325 COLP W/ BX & ECC 02/27/2014 [id number] ROUTINE VENIPUNCTURE 03/19/2014 [id number] CBC 03/19/2014 [id number] ROUTINE VENIPUNCTURE 04/02/2014 [id number] CBC 04/02/2014 OBSTETRIC SERGEY ROD 04/11/2014 Obstetric CalliParas 04/12/2014 [id number] H PYLORI (IN-HOUSE) 04/20/2014 Results Test Result Range Urine beta human chorionic gonadotropin (hCG) measurement - 08/04/16 07:20 Urine beta human chorionic gonadotropin (hCG) measurement NEGATIVE NEGATIVE Encounters ACCT No. Visit Date/Time Discharge Status Pt. Type Provider Facility Loc./Unit Complaint [id number] 08/15/2014 10:24:00 08/15/2014 23: 59:59 CLS Outpatient MADL RN OSTOMYJERICA ArguetaA L [id number] 04/20/2014 15:36:00 04/20/2014 23: 59:59 CLS Outpatient MADL RN OSTOMY DANIELA L [id number] 04/10/2014 15:35:00 04/10/2014 23: 59:59 CLS Outpatient MADL RN OSTOMYVIKYDANIELA L [id number] 04/02/2014 10:13:00 04/02/2014 23: 59:59 CLS Outpatient MADL RN OSTOMYJERICAA L [id number] 03/19/2014 11:21:00 03/19/2014 23: 59:59 CLS Outpatient MADL RN OSTOMY DANIELA L [id number] 02/27/2014 13:11:00 02/27/2014 23: 59:59 CLS Outpatient ELHAM GUNN MD [id number] 01/30/2014 09:24:00 01/30/2014 23: 59:59 CLS Outpatient KRYSTYNA LOCK APRN [id number] 01/19/2014 08:43:00 01/19/2014 23: 59:59 CLS Outpatient DANIELA CAMERON APRN
== END 2016-08-04 09:15 | disposition home or self-care (01) ==
LOC: DELPENDDIS → ENDO 07:15
PROVIDERS: ATTEND Surgery
DX: Z08 Encounter for follow-up examination after completed treatment for malignant neoplasm (principal); D12.6 Benign neoplasm of colon, unspecified; Z85.038 Personal history of other malignant neoplasm of large intestine; Z80.0 Family history of malignant neoplasm of digestive organs; K44.9 Diaphragmatic hernia without obstruction or gangrene
CPT/HCPCS: 84703; 88305

== ENCOUNTER → 2016-11-30 | Outpatient (CLI) | payer OTHER ==
--- NOTE | 2016-11-30 13:32 | Diagnostic Imaging Report ---
PROCEDURE: US Thyroid. TECHNIQUE: Multiple real-time grayscale images were obtained of the thyroid in various projections. Thyroid ultrasound. INDICATIONS: Thyroid nodules. FINDINGS: The right thyroid lobe is 4.8 x 1.1 x 1.3 cm. The left lobe is 4.6 x 1.3 x 1.2 cm. There are small thyroid nodules, up to 4 mm in the right lobe, 3 mm nodule in the isthmus and 7 mm nodule in the left lobe with no internal vascularity. These are nonspecific nodules. IMPRESSION: Nonspecific subcentimeter thyroid nodules seen without significant change compared to 06/02/2016. Dictated by: Dictated on workstation # [id number]
== END ==
LOC: RAD 10:44
PROVIDERS: ATTEND Nurse Practitioner Adult Health
DX: E04.2 Nontoxic multinodular goiter (principal); C18.7 Malignant neoplasm of sigmoid colon
CPT/HCPCS: 76536

== ENCOUNTER 2016-12-24 05:40 | Outpatient (CLI) | payer OTHER ==
[~2016-12-24] VITALS: Ht 167.6 cm; Wt 88.5 kg
[2016-12-24] MEDS ORDERED: OMEP20TA7 PO (11:09)
== END 2016-12-24 11:13 ==
LOC: PREOP 05:40
PROVIDERS: ATTEND Surgery
DX: Z01.818 Encounter for other preprocedural examination (principal); D12.5 Benign neoplasm of sigmoid colon

== ENCOUNTER 2016-12-29 09:57 | Day surgery (SDC) | payer OTHER ==
[~2016-12-29 09:57] MED LIST changes: +OMEP20TA7 PO
[2016-12-29 10:05] VITALS: BP 132/84
[2016-12-29] MEDS ORDERED: LACTATED RINGERS 1,000 ML IV ONE (10:57)
[2016-12-29] MEDS ORDERED: LACTATED RINGERS 1,000 ML IV SCH (11:15)
--- NOTE | 2016-12-29 11:16 | Progress Note-Pre Operative ---
Pre-Operative Progress Note H&P Reviewed The H&P was reviewed, patient examined and no changes noted. Date Seen by Provider: Dec 29, 2016 Time Seen by Provider: 11:15 Date H&P Reviewed: Dec 29, 2016 Time H&P Reviewed: 11:15 Pre-Operative Diagnosis: fap history colon cancer, hx tubular adenoma STAR MARQUEZ DO Dec 29, 2016 11:16 am
[2016-12-29] MEDS ORDERED: MIDAZOLAM 2 MG/2 ML (VERSED) VIAL ONE (12:59)
[2016-12-29] MEDS ORDERED: proPOfol 200 MG/20 ML (DIPRIVAN) VIAL IV ONE (12:59)
--- NOTE | 2016-12-29 13:36 | Progress Note-Post Operative ---
Post-Operative Progess Note Surgeon (s)/Literacy Coach (s) Surgeon STAR MARQUEZ DO Literacy Coach: na Pre-Operative Diagnosis fap history colon cancer, hx tubular adenoma Post-Operative Diagnosis pouch polyps Procedure & Operative Findings Date of Procedure 12/29/16 Procedure Performed/Findings flex sig hot bx polypectomy x 3 and fulgaration x 4 Anesthesia Type per biofuels product manager Estimated Blood Loss Estimated blood loss (mL): scant Specimens/Packing Specimens Removed polyps STAR MARQUEZ DO Dec 29, 2016 13:36
--- NOTE | 2016-12-29 13:40 | Discharge Inst-Simple/Standard ---
Discharge Inst-Standard Patient Instructions/Follow Up Plan of Care/Instructions/FU: 2 weeks Johnathan Activity as Tolerated: Yes Discharge Diet: Regular Diet STAR MARQUEZ DO Dec 29, 2016 13:40
[2016-12-29 13:50] VITALS: BP 136/86
[2016-12-29 14:20] VITALS: BP 132/78
[2016-12-29 14:32] VITALS: BP 132/78
--- NOTE | 2016-12-29 15:11 | OPERATIVE REPORT ---
DATE OF SERVICE: 12/29/2016 PREOPERATIVE DIAGNOSIS: FAP, history of colon cancer, history of tubular adenoma. POSTOPERATIVE DIAGNOSIS: Positive polyps. PROCEDURE: Flexible sigmoidoscopy with hot biopsy polypectomy x3 and fulguration x4. SURGEON: Star Mann DO ANESTHESIA: Per TRIAGE REGISTERED NURSE. ESTIMATED BLOOD LOSS: Scant. INDICATIONS: The patient is a 31-year-old female with history as noted above. She was recommended to have repeat flexible sig with us to evaluate her pouch. She understands risks and benefits and wished to proceed with procedure. Consent was signed in the chart. PROCEDURE: The patient was taken to the endoscopy suite, placed in left lateral recumbent position. Timeout was performed. Digital rectal exam was performed and there were no palpable polyps, mass or ulcerations. The scope was inserted through the anus and into the remainder of the rectum and up into the J pouch. The blind limb has normal appearance. The continuous limb has normal appearance. Within the pouch, staple lines there are three polyps, one more proximal and two more distal. Hot biopsy polypectomy was performed. There were other small polyps present with the appearance of possible early polyps, therefore, these were fulgurated. The scope was also retroflexed noting no other pathology. Scope was returned to its normal position, slowly withdrawn until completely removed, noting no other pathology. The patient tolerated procedure well without any complications. She was taken to recovery room in stable condition. RECOMMENDATIONS: The patient will follow up in the office in 2 weeks to discuss pathology results. The patient will need repeat endoscopy in 1 year. If she has any problems prior to that, she should be reevaluated at that time. Job ID: [id number] DocumentID: [id number] Dictated Date: 12/29/2016 13:39:20 Home Aide Date: 12/29/2016 15:10:58 Dictated By: STAR MANN DO
== END 2016-12-29 14:33 | disposition home or self-care (01) ==
LOC: ENDO 09:57
PROVIDERS: ATTEND Surgery
DX: Z08 Encounter for follow-up examination after completed treatment for malignant neoplasm (principal); D12.7 Benign neoplasm of rectosigmoid junction; Z85.038 Personal history of other malignant neoplasm of large intestine; K21.9 Gastro-esophageal reflux disease without esophagitis; E66.9 Obesity, unspecified; Z68.31 Body mass index [BMI] 31.0-31.9, adult; Z80.0 Family history of malignant neoplasm of digestive organs
CPT/HCPCS: 84703; 88305

== ENCOUNTER 2017-05-13 09:32 | Outpatient (RCR) | payer SELFPAY ==
[2017-05-13 09:50] LABS: BASOPHILS % (AUTO) 1 % (0-10); EOSINOPHILS % (AUTO) 1 % (0-10); HEMATOCRIT 36 % (35-52); HEMOGLOBIN 13.5 G/DL (11.5-16.0); LYMPHOCYTES # (AUTO) 1.8 X 10^3 (1.0-4.0); LYMPHOCYTES % (AUTO) 43 % (12-44); MEAN CORPUSCULAR HEMOGLOBIN 25 PG (25-34); MEAN CORPUSCULAR HGB CONC 37 G/DL (32-36); MEAN CORPUSCULAR VOLUME 68 FL (80-99); MONOCYTES # (AUTO) 0.3 X 10^3 (0.0-1.0); MONOCYTES % (AUTO) 8 % (0-12); NEUTROPHILS # (AUTO) 1.9 X 10^3 (1.8-7.8); NEUTROPHILS % (AUTO) 47 % (42-75); PLATELET COUNT 170 10^3/uL (130-400); RED BLOOD COUNT 5.35 10^6/uL (4.35-5.85); RED CELL DISTRIBUTION WIDTH 14.7 % (10.0-14.5); WHITE BLOOD COUNT 4.1 10^3/uL (4.3-11.0)
[2017-05-13 10:18] LABS: ALANINE AMINOTRANSFERASE 13 U/L (0-55); ALKALINE PHOSPHATASE 60 U/L (40-136); BILIRUBIN,TOTAL 1.1 MG/DL (0.1-1.0); BUN/CREATININE RATIO 15; CALCIUM 8.7 MG/DL (8.5-10.1); CARBON DIOXIDE 26 MMOL/L (21-32); CHLORIDE 107 MMOL/L (98-107); GFR ESTIMATED > 60; GLUCOSE 83 MG/DL (70-105); POTASSIUM 3.7 MMOL/L (3.6-5.0); SODIUM 142 MMOL/L (135-145)
== END 2017-08-11 | disposition home or self-care (01) ==
LOC: ONC 09:32
PROVIDERS: ATTEND Internal Medicine Hematology & Oncology
DX: Z08 Encounter for follow-up examination after completed treatment for malignant neoplasm (principal); Z85.038 Personal history of other malignant neoplasm of large intestine; Z86.010 Personal history of colon polyps; Z80.0 Family history of malignant neoplasm of digestive organs; Z92.21 Personal history of antineoplastic chemotherapy; F32.9 Major depressive disorder, single episode, unspecified
CPT/HCPCS: 36415; 80053; 82378; 84443; 85025; 99213

== ENCOUNTER 2018-01-14 15:59 | Outpatient (CLI) | payer OTHER ==
[~2018-01-14] VITALS: Ht 167.6 cm; Wt 90.3 kg
== END 2018-01-14 16:05 | disposition home or self-care (01) ==
LOC: PREOP 15:59
PROVIDERS: ATTEND Surgery
DX: Z01.818 Encounter for other preprocedural examination (principal)

== ENCOUNTER 2018-01-18 08:18 | Day surgery (SDC) | payer OTHER ==
[~2018-01-18] VITALS: Ht 167.6 cm; Wt 90.3 kg
[2018-01-18] MEDS ORDERED: LACTATED RINGERS 1,000 ML IV STA (08:45)
[2018-01-18] MEDS ORDERED: LACTATED RINGERS 1,000 ML IV ONE (08:56)
--- OUTSIDE RECORDS SUMMARY | 2018-01-18 08:56 | XMS REPORT ---
Author Author KYLEE GALDAMEZ Organization [facility] Address [address] [place] [address] Care Team Providers Care Tailings Worker Name Role Phone KYLEE GALDAMEZ Unavailable PROBLEMS Type Condition ICD9-CM Code XZU21-PG Code Onset Dates Condition Status SNOMED Code Problem Dysthymia F34.1 Active 12500871 Problem History of colon cancer Z85.038 Active 697600470 ALLERGIES Substance Reaction Event Type Date Status Amoxicillin Unknown Drug Allergy May, Active Plastic tape Unknown Non Drug Allergy May, Active Peroxide Unknown Non Drug Allergy May, Active ENCOUNTERS Encounter Location Date Diagnosis [facility] [id number] [place] [address] May, Acute non-recurrent maxillary sinusitis J01.00 [facility] [id number] [place] [address] May, Acute non-recurrent maxillary sinusitis J01.00 ; Dysthymia F34.1 and History of colon cancer Z85.038 [facility] [id number] [place] [address]67 Oct, Other seasonal allergic rhinitis J30.2 [facility] [id number] [place] [address] Oct, [facility] [id number] [place] [address]79- [address]324 September, Dysthymic disorder 300.4 ; Unspecified anemia 285.9 and Papanicolaou smear of cervix with high grade squamous intraepithelial lesion ( HGSIL) 795.04 [facility] [id number] [place] [address]- [address] September, [facility] [id number] [place] [address] 14 Aug, 2014 [facility] [address] [id number] [place] [address] 13 Aug, 2014 [facility] [address] [id number] [place] [address] May, [facility] [address] [id number] [place] [address] May, [facility] [address] [id number] [place] [address] Apr, [facility] [address] [id number] [place] [address] Apr, [facility] [address] [id number] [place] [address] Apr, [facility] [address] [id number] [place] [address] Apr, [facility] [address] [id number] [place] [address] 8647 Apr, [facility] [address] [id number] [place] [address] Apr, [facility] [address] [id number] [place] [address] Apr, [facility] [address] [id number] [place] [address] 9435 Apr, [facility] [address] [id number] [place] [address] 8144 Apr, [facility] [place] [facility] [address] [id number] [place] [address]81 Apr, [facility] [place] [facility] [address] [id number] [place] [address] Mar, [facility] [address] [id number] [place] [address] Mar, [facility] [place] [facility] [address] [id number] [place] [address]64 Mar, [facility] [place] [facility] [address] [id number] [place] [address]994 Mar, [facility] [place] [facility] [address] [id number] [place] [address] 3789 Mar, [facility] [place] [facility] [address] [id number] [place] [address] Mar, [facility] [place] [facility] [address] [id number] [place] [address] 8537 Mar, [facility] [place] [facility] [address] [id number] [place] [address] 6103 Mar, [facility] [place] [facility] [address] [id number] [place] [address] 1101 Mar, [facility] [place] [facility] [address] [id number] [place] [address] 7173 Mar, [facility] [place] [facility] [address] [id number] [place] [address] 9574 Feb, [facility] [place] [facility] [address] [id number], [place] [address] Feb, [facility] [place] [facility] [address] [id number], [place] [address] Feb, [facility] [place] [facility] [address] [id number], [place] [address] Feb, [facility] [place] [facility] [address] [id number] [place] [address]- 0285 Feb, [facility] [place] [facility] [address] [id number] [place] [address] 0110 Feb, [facility] [place] [facility] [address] [id number], [place] [address] Feb, [facility] [place] [facility] [address] [id number], [place] [address] Feb, [facility] [id number] [address] 30 Jan, 2014 [facility] [id number] [address] Jan, [facility] [id number] [address] Jan, [facility] [id number] [place] [address]- [address]64 19 Jan, 2014 [facility] [id number] [place] [address] 18908- 5178 Jan, [facility] [id number] [place] [address]- 4314 Jan, [facility] [id number] [place] [address]65- 1704 Dec, [facility] [id number] [address] Mar, [facility] [id number] [place] [address]- 7453 Feb, [facility] [id number] [address] Feb, IMMUNIZATIONS No Known Immunizations SOCIAL HISTORY Never Assessed REASON FOR VISIT productive cough, sinus congestion, green sputum x 1 week----DBennettRN PLAN OF CARE Activity Details Follow Up prn Reason: VITAL SIGNS Height 66 in 2017-05-25 Weight 190 lbs 2017-05-25 Temperature 97.9 degrees Fahrenheit 2017-05-25 Heart Rate 80 bpm 2017-05-25 Respiratory Rate 20 2017-05-25 BMI 30.66 kg/m2 2017-05-25 Blood pressure systolic 124 mmHg 2017-05-25 Blood pressure diastolic 90 mmHg 2017-05-25 MEDICATIONS Medication Instructions Dosage Frequency Start Date End Date Duration Status Biaxin 500 mg 1 tablet by Oral route every 12 hours for 10 day(s) Apr, Not-Taking Flonase 50 mcg/actuation 1 sprays by Nasal route 2 times per day in each nostril VOUCHER X 1 Jan, Not-Taking Zofran ODT 8 MG Orally every 8 hrs as needed as directed Oct, Not-Taking Carafate 1 gram 1 tablet by Oral route 4 times per day Apr, Not-Taking Fluoxetine HCl 20 MG Orally Once a day 1 capsule in the morning 24h September 90 days Active Nystatin 100,000 unit/mL take 5 mL by Oral route 4 times per day for 7 days Apr, Not-Taking Amoxicillin 500 mg 2 capsule by Oral route 2 times per day for 10 day(s) Apr, Not-Taking SudoGest 60 mg Orally every 6 hrs 1 tablet as needed 6h May, 05 days Active Reglan 5 mg 1 Tablet by Oral route 2 times per day PRN VOUCHER X 1 Apr, Not-Taking Doxycycline Hyclate 100 mg Orally every 12 hrs 1 capsule 12h May, May, 07 days Active Zofran ODT 4 mg take 1 tablets by Oral route every 6 hours PRN Nausea or Vomiting Mar, Not-Taking Flonase 50 MCG/ACT Nasally Once a day 1 spray in each nostril 24h Oct, 30 day(s) Not-Taking Omeprazole 20 mg take 1 capsule by Oral route before a meal 2 times per day Apr, Active RESULTS No Results PROCEDURES No Known procedures INSTRUCTIONS MEDICATIONS ADMINISTERED No Known Medications MEDICAL (GENERAL) HISTORY Type Description Date Medical History colorectal cancer-dx'd 2005 Medical History anemia Medical History allergic rhinitis Medical History dysthymic disorder Medical History dyspepsia Surgical History colectomy with J pouch 2010 Surgical History loop electrosurgical excision procedure (LEEP)
[2018-01-18 08:57] VITALS: BP 130/80
--- OUTSIDE RECORDS SUMMARY | 2018-01-18 08:57 | XMS REPORT | Continuity of Care Document ---
Author Author [facility] Address Unknown Phone Unavailable Allergies Active Description Code Type Severity Reaction Onset Reported/Identified Relationship to Patient Clinical Status Yes peroxide OA N/A N/ A 07/11/2008 Yes plastic tape OA N/A N/A 07/11/2008 Yes PEROXIDE PEROXIDE Unknown N/A 03/14/2014 Yes PLASTIC TAPE PLASTIC TAPE Unknown N/A 03/14/2014 Medications There is no data. Problems Date Dx Coded Attending Type Code Diagnosis Diagnosed By 02/16/2008 RAKESH NAIK DANIELA L 924.9 BRUISE/CONTUSION UNSPECIFIED SITE 02/16/2008 KRYSTYNA LOCK APRN A 924.9 BRUISE/CONTUSION UNSPECIFIED SITE 02/16/2008 ELHAM GUNN MD 924.9 BRUISE/CONTUSION UNSPECIFIED SITE 02/16/2008 MADL THREAD WINDER, DANIELA L 924.9 BRUISE/CONTUSION UNSPECIFIED SITE 02/16/2008 MADL THREAD WINDER, DANIELA L 924.9 BRUISE/CONTUSION UNSPECIFIED SITE 02/16/2008 MADL THREAD WINDER, DANIELA L 924.9 BRUISE/CONTUSION UNSPECIFIED SITE 02/16/2008 MADL THREAD WINDER, DANIELA L 924.9 BRUISE/CONTUSION UNSPECIFIED SITE 02/16/2008 MADL THREAD WINDER, DANIELA L 924.9 BRUISE/CONTUSION UNSPECIFIED SITE 07/11/2008 RAKESH NAIK DANIELA L 625.9 FEMALE PELVIC PAIN 07/11/2008 KRYSTYNA LOCK APRN A 625.9 FEMALE PELVIC PAIN 07/11/2008 ELHAM GUNN MD 625.9 FEMALE PELVIC PAIN 07/11/2008 MIRTAL THREAD WINDER, DANIELA L 625.9 FEMALE PELVIC PAIN 07/11/2008 RAKESH NAIK DANIELA L 625.9 FEMALE PELVIC PAIN 07/11/2008 MADL THREAD WINDER, DANIELA L 625.9 FEMALE PELVIC PAIN 07/11/2008 MADL THREAD WINDER, DANIELA L 625.9 FEMALE PELVIC PAIN 07/11/2008 MADL THREAD WINDER, DANIELA L 625.9 FEMALE PELVIC PAIN 09/28/2008 MADL THREAD WINDER, DANIELA L V72.31 Pelvic Exam (Internal) 09/28/2008 MADL THREAD WINDER, DANIELA L V74.5 visit for: screening exam bact/spirochetal venereal disease 09/28/2008 ASHVIN THREAD WINDER, KRYSTYNA A V72.31 Pelvic Exam (Internal) 09/28/2008 ASHVIN THREAD WINDER, KRYSTYNA A V74.5 visit for: screening exam bact/spirochetal venereal disease 09/28/2008 ELHAM GUNN MD N V72.31 Pelvic Exam (Internal) 09/28/2008 ELHAM GUNN MD N V74.5 visit for: screening exam bact/spirochetal venereal disease 09/28/2008 MADL THREAD WINDER, DANIELA L V72.31 Pelvic Exam (Internal) 09/28/2008 MADL THREAD WINDER, DANIELA L V74.5 visit for: screening exam bact/spirochetal venereal disease 09/28/2008 MADL THREAD WINDER, DANIELA L V72.31 Pelvic Exam (Internal) 09/28/2008 MADL THREAD WINDER, DANIELA L V74.5 visit for: screening exam bact/spirochetal venereal disease 09/28/2008 MADL THREAD WINDER, DANIELA L V72.31 Pelvic Exam (Internal) 09/28/2008 MADL THREAD WINDER, DANIELA L V74.5 visit for: screening exam bact/spirochetal venereal disease 09/28/2008 MADL THREAD WINDER, DANIELA L V72.31 Pelvic Exam (Internal) 09/28/2008 MADL THREAD WINDER, DANIELA L V74.5 visit for: screening exam bact/spirochetal venereal disease 09/28/2008 MADL THREAD WINDER, DANIELA L V72.31 Pelvic Exam (Internal) 09/28/2008 MADL THREAD WINDER, DANIELA L V74.5 visit for: screening exam bact/spirochetal venereal disease 03/30/2011 Ot 211.3 BENIGN NEOPLASM LG BOWEL 03/30/2011 Ot V10.05 HX OF COLONIC MALIGNANCY 03/30/2011 Ot V67.09 SURGERY FOLLOW-UP, OTHER SURGERY 01/19/2014 MADL THREAD WINDER, DANIELA L 154.0 MALIGNANT NEOPLASM OF RECTOSIGMOID JUNCTION 01/19/2014 MADL THREAD WINDER, DANIELA L 477.9 ALLERGIC RHINITIS CAUSE UNSPECIFIED 01/19/2014 ASHVINYAJAIRA Argueta APRNIDI A 154.0 MALIGNANT NEOPLASM OF RECTOSIGMOID JUNCTION 01/19/2014 ASHVINEllie NAIK KRYSTYNA A 477.9 ALLERGIC RHINITIS CAUSE UNSPECIFIED 01/19/2014 LEHAM GUNN MD N 154.0 MALIGNANT NEOPLASM OF RECTOSIGMOID JUNCTION 01/19/2014 ELHAM GUNN MD N 477.9 ALLERGIC RHINITIS CAUSE UNSPECIFIED 01/19/2014 MADL THREAD WINDER, DANIELA L 154.0 MALIGNANT NEOPLASM OF RECTOSIGMOID JUNCTION 01/19/2014 MADL THREAD WINDER, DANIELA L 477.9 ALLERGIC RHINITIS CAUSE UNSPECIFIED 01/19/2014 MADL THREAD WINDER, DANIELA L 154.0 MALIGNANT NEOPLASM OF RECTOSIGMOID JUNCTION 01/19/2014 MADL THREAD WINDER, DANIELA L 477.9 ALLERGIC RHINITIS CAUSE UNSPECIFIED 01/19/2014 MADL THREAD WINDER, DANIELA L 154.0 MALIGNANT NEOPLASM OF RECTOSIGMOID JUNCTION 01/19/2014 MADL THREAD WINDER, DANIELA L 477.9 ALLERGIC RHINITIS CAUSE UNSPECIFIED 01/19/2014 MADL THREAD WINDER, DANIELA L 154.0 MALIGNANT NEOPLASM OF RECTOSIGMOID JUNCTION 01/19/2014 MADL THREAD WINDER, DANIELA L 477.9 ALLERGIC RHINITIS CAUSE UNSPECIFIED 01/19/2014 MADL THREAD WINDER, DANIELA L 154.0 MALIGNANT NEOPLASM OF RECTOSIGMOID JUNCTION 01/19/2014 MADL THREAD WINDER, DANIELA L 477.9 ALLERGIC RHINITIS CAUSE UNSPECIFIED 01/30/2014 KRYSTYNA LOCK APRN A V26.9 PROCREATIVE MANAGEMENT 01/30/2014 KRYSTYNA LOCK APRN A V76.10 BREAST CANCER SCREENING 01/30/2014 ASHVIN THREAD WINDER, KRYSTYNA A V76.2 CERVICAL CANCER SCREENING (PAP SMEAR) 01/30/2014 ELHAM GUNN MD N V26.9 PROCREATIVE MANAGEMENT 01/30/2014 ELHAM GUNN MD N V76.10 BREAST CANCER SCREENING 01/30/2014 ELHAM GUNN MD V76.2 CERVICAL CANCER SCREENING (PAP SMEAR) 01/30/2014 MADL THREAD WINDER, DANIELA L V26.9 PROCREATIVE MANAGEMENT 01/30/2014 MADL THREAD WINDER, DANIELA L V76.10 BREAST CANCER SCREENING 01/30/2014 MADL THREAD WINDER, DANIELA L V76.2 CERVICAL CANCER SCREENING (PAP SMEAR) 01/30/2014 MADL THREAD WINDER, DANIELA L V26.9 PROCREATIVE MANAGEMENT 01/30/2014 MADL THREAD WINDER, DANIELA L V76.10 BREAST CANCER SCREENING 01/30/2014 MADL THREAD WINDER, DANIELA L V76.2 CERVICAL CANCER SCREENING (PAP SMEAR) 01/30/2014 MAD THREAD WINDER, DANIELA L V26.9 PROCREATIVE MANAGEMENT 01/30/2014 MADL THREAD WINDER, DANIELA L V76.10 BREAST CANCER SCREENING 01/30/2014 MADL THREAD WINDER, DANIELA L V76.2 CERVICAL CANCER SCREENING (PAP SMEAR) 01/30/2014 MADL THREAD WINDER, DANIELA L V26.9 PROCREATIVE MANAGEMENT 01/30/2014 MADL THREAD WINDER, DANIELA L V76.10 BREAST CANCER SCREENING 01/30/2014 MADL THREAD WINDER, DANIELA L V76.2 CERVICAL CANCER SCREENING (PAP SMEAR) 01/30/2014 MAD THREAD WINDER, DANIELA L V26.9 PROCREATIVE MANAGEMENT 01/30/2014 MADL THREAD WINDER, DANIELA L V76.10 BREAST CANCER SCREENING 01/30/2014 MADL THREAD WINDER, DANIELA L V76.2 CERVICAL CANCER SCREENING (PAP SMEAR) 02/27/2014 ELHAM GUNN MD 795.04 ABNORMAL PAP - HGSIL 02/27/2014 MADL THREAD WINDER, DANIELA L 795.04 ABNORMAL PAP - HGSIL 02/27/2014 MAD THREAD WINDER, DANIELA L 795.04 ABNORMAL PAP - HGSIL 02/27/2014 MADL THREAD WINDER, DANIELA L 795.04 ABNORMAL PAP - HGSIL 02/27/2014 MADL THREAD WINDER, DANIELA L 795.04 ABNORMAL PAP - HGSIL 02/27/2014 MADL THREAD WINDER, DANIELA L 795.04 ABNORMAL PAP - HGSIL 03/15/2014 DESTINI SMITH DO Ot 998.11 HEMOR COMPLIC A PROCEDURE 03/19/2014 MADL THREAD WINDER, DANIELA L 780.79 WEAKNESS 03/19/2014 MADL THREAD WINDER, DANIELA L 780.79 WEAKNESS 03/19/2014 MADL THREAD WINDER, DANIELA L 780.79 WEAKNESS 03/19/2014 MADL THREAD WINDER, DANIELA L 780.79 WEAKNESS 03/19/2014 MADL THREAD WINDER, DANIELA L 780.79 WEAKNESS 04/02/2014 MADL THREAD WINDER, DANIELA L 285.9 ANEMIA UNSPECIFIED 04/02/2014 MADL THREAD WINDER, DANIELA L 300.4 DYSTHYMIC DISORDER 04/02/2014 MADL THREAD WINDER, DANIELA L 285.9 ANEMIA UNSPECIFIED 04/02/2014 MADL THREAD WINDER, DANIELA L 300.4 DYSTHYMIC DISORDER 04/02/2014 MADL THREAD WINDER, DANIELA L 285.9 ANEMIA UNSPECIFIED 04/02/2014 MADL THREAD WINDER, DANIELA L 300.4 DYSTHYMIC DISORDER 04/02/2014 MADL THREAD WINDER, DANIELA L 285.9 ANEMIA UNSPECIFIED 04/02/2014 MADL THREAD WINDER, DANIELA L 300.4 DYSTHYMIC DISORDER 04/10/2014 MADL THREAD WINDER, DANIELA L 536.8 DYSPEPSIA AND OTHER SPECIFIED DISORDERS OF FUNCTION OF STOMACH 04/10/2014 MADL THREAD WINDER, DANIELA L 787.01 NAUSEA WITH VOMITING 04/10/2014 MADL THREAD WINDER, DANIELA L 536.8 DYSPEPSIA AND OTHER SPECIFIED DISORDERS OF FUNCTION OF STOMACH 04/10/2014 MADL THREAD WINDER, DANIELA L 787.01 NAUSEA WITH VOMITING 04/10/2014 MADL THREAD WINDER, DANIELA L 536.8 DYSPEPSIA AND OTHER SPECIFIED [...] APRN L 461.8 OTHER ACUTE SINUSITIS 08/15/2014 JERICA CAMERON APRNA L 465.9 UPPER RESPIRATORY INFECTION 03/25/2015 MINI TAVAREZ Ot V10.05 07/16/2015 Ot 153.9 07/16/2015 Ot 153.9 07/16/2015 Ot 153.9 07/16/2015 ALLEN RIOS, TERESA Ot 153.9 07/16/2015 ALLEN RIOS, TERESA Ot 153.9 07/16/2015 STAR MARQUEZ DO Ot V72.84 07/16/2015 MINI TAVAREZ Ot V10.05 07/16/2015 DONNA VEGA REGISTERED NURSE PRACTITIONER Ot Z08 07/16/2015 DONNA VEGA REGISTERED NURSE PRACTITIONER Ot Z80.0 07/16/2015 DONNA VEGA REGISTERED NURSE PRACTITIONER Ot Z85.038 07/16/2015 DONNA VEGA REGISTERED NURSE PRACTITIONER Ot Z92.21 07/19/2015 STAR MARQUEZ DO Ot Z01.818 ENCOUNTER FOR OTHER PREPROCEDURAL EXAMIN 07/23/2015 Ot 153.9 07/23/2015 Ot 153.9 07/23/2015 Ot 153.9 07/23/2015 ALLEN RIOS, TERESA Ot 153.9 07/23/2015 ALLEN RIOS, TERESA Ot 153.9 07/23/2015 STAR MARQUEZ DO Ot V72.84 07/23/2015 MINI TAVAREZ Ot V10.05 07/23/2015 DONNA VEGA REGISTERED NURSE PRACTITIONER Ot Z08 07/23/2015 DONNA VEGA REGISTERED NURSE PRACTITIONER Ot Z80.0 07/23/2015 DONNA VEGA REGISTERED NURSE PRACTITIONER Ot Z85.038 07/23/2015 DONNA VEGA REGISTERED NURSE PRACTITIONER Ot Z92.21 07/23/2015 STAR MARQUEZ DO Ot [...] 07/27/2015 STAR MARQUEZ DO Ot Z98.0 08/01/2015 [place] DO, STAR D Ot Z08 08/01/2015 [place] DO, STAR D Ot Z85.048 08/01/2015 [place] DO, STAR D Ot Z98.0 05/19/2016 Ot 153.9 MALIGNANT ETTA COLON NOS 05/19/2016 Ot 153.9 MALIGNANT ETTA COLON NOS 05/19/2016 ALLEN RIOS, TERESA Ot 153.9 MALIGNANT ETTA COLON NOS 05/19/2016 ALLEN RIOS, TERESA Ot 153.9 MALIGNANT ETTA COLON NOS 05/19/2016 [facility], STAR D Ot V72.84 EXAM PRE-OPERATIVE NOS 05/19/2016 MINI TAVAREZ Ot V10.05 05/19/2016 DONNA VEGA REGISTERED NURSE PRACTITIONER Ot Z08 ENCNTR FOR FOLLOW-UP EXAM AFTER TRTMT FO 05/19/2016 DONNA VEGA REGISTERED NURSE PRACTITIONER Ot Z80.0 FAMILY HISTORY OF MALIGNANT NEOPLASM OF 05/19/2016 DONNA VEGA REGISTERED NURSE PRACTITIONER Ot Z85.038 PERSONAL HISTORY OF MALIGNANT NEOPLASM O 05/19/2016 DONNA VEGA REGISTERED NURSE PRACTITIONER Ot Z92.21 PERSONAL HISTORY OF ANTINEOPLASTIC CHEMO [...] Ot 153.9 MALIGNANT ETTA COLON NOS 05/28/2016 [facility] V72.84 EXAM PRE-OPERATIVE NOS 05/28/2016 MINI TAVAREZ Ot V10.05 05/28/2016 DONNA VEGA REGISTERED NURSE PRACTITIONER Ot Z08 ENCNTR FOR FOLLOW-UP EXAM AFTER TRTMT FO 05/28/2016 DONNA VEGA REGISTERED NURSE PRACTITIONER Ot Z80.0 FAMILY HISTORY OF MALIGNANT NEOPLASM OF 05/28/2016 DONNA VEGA REGISTERED NURSE PRACTITIONER Ot Z85.038 PERSONAL HISTORY OF MALIGNANT NEOPLASM O 05/28/2016 DONNA VEGA REGISTERED NURSE PRACTITIONER Ot Z92.21 PERSONAL HISTORY OF ANTINEOPLASTIC CHEMO 05/28/2016 MINI TAVAREZ Ot Z08 ENCNTR FOR FOLLOW-UP EXAM AFTER TRTMT FO 05/28/2016 MINI TAVAREZ Ot Z80.0 FAMILY HISTORY OF MALIGNANT NEOPLASM OF 05/28/2016 MINI TAVAREZ N Ot Z85.038 PERSONAL HISTORY OF MALIGNANT NEOPLASM O 05/28/2016 MINI TAVAREZ N Ot Z86.010 PERSONAL HISTORY OF COLONIC POLYPS 05/28/2016 MINI TAVAREZ Ellie Ot Z92.21 PERSONAL HISTORY OF ANTINEOPLASTIC CHEMO 05/28/2016 DONNA VEGA REGISTERED NURSE PRACTITIONER Ot Z08 ENCNTR FOR FOLLOW-UP EXAM AFTER TRTMT FO 05/28/2016 DONNA VEGA REGISTERED NURSE PRACTITIONER Ot Z85.038 PERSONAL HISTORY OF MALIGNANT NEOPLASM O 05/28/2016 DONNA VEGA REGISTERED NURSE PRACTITIONER Ot Z92.21 PERSONAL HISTORY OF ANTINEOPLASTIC CHEMO 05/28/2016 DONNA VEGA REGISTERED NURSE PRACTITIONER Ot Z08 ENCNTR FOR FOLLOW-UP EXAM AFTER TRTMT FO 05/28/2016 DONNA VEGA REGISTERED NURSE PRACTITIONER Ot Z80.0 FAMILY HISTORY OF MALIGNANT NEOPLASM OF 05/28/2016 DONNA VEGA REGISTERED NURSE PRACTITIONER Ot Z85.038 PERSONAL HISTORY OF MALIGNANT NEOPLASM O 05/28/2016 DONNA VEGA REGISTERED NURSE PRACTITIONER Ot Z92.21 PERSONAL HISTORY OF ANTINEOPLASTIC CHEMO 05/29/2016 DONNA VEGA REGISTERED NURSE PRACTITIONER Ot Z08 ENCNTR FOR FOLLOW-UP EXAM AFTER TRTMT FO 05/29/2016 DONNA VEGA REGISTERED NURSE PRACTITIONER Ot Z85.038 PERSONAL HISTORY OF MALIGNANT NEOPLASM O 05/29/2016 DONNA VEGA REGISTERED NURSE PRACTITIONER Ot Z92.21 PERSONAL HISTORY OF ANTINEOPLASTIC CHEMO 06/02/2016 Ot 153.9 MALIGNANT ETTA COLON NOS 06/02/2016 Ot 153.9 MALIGNANT ETTA COLON NOS 06/02/2016 TERESA VILLA MD Ot 153.9 MALIGNANT ETTA COLON NOS 06/02/2016 ALLEN RIOS, TERESA Ot 153.9 MALIGNANT ETTA COLON NOS 06/02/2016 STAR MARQUEZ DO Ot V72.84 EXAM PRE-OPERATIVE NOS 06/02/2016 MINI TAVAREZ Ot V10.05 06/02/2016 DONNA VEGA REGISTERED NURSE PRACTITIONER Ot Z08 ENCNTR FOR FOLLOW-UP EXAM AFTER TRTMT FO 06/02/2016 DONNA VEGA REGISTERED NURSE PRACTITIONER Ot Z85.038 PERSONAL HISTORY OF MALIGNANT NEOPLASM O 06/02/2016 DONNA VEGA REGISTERED NURSE PRACTITIONER Ot Z92.21 PERSONAL HISTORY OF ANTINEOPLASTIC CHEMO 06/02/2016 DONNA VEGA REGISTERED NURSE PRACTITIONER Ot Z08 ENCNTR FOR FOLLOW-UP EXAM AFTER TRTMT FO 06/02/2016 DONNA VEGA REGISTERED NURSE PRACTITIONER Ot Z80.0 FAMILY HISTORY OF MALIGNANT NEOPLASM OF 06/02/2016 DONNA VEGA REGISTERED NURSE PRACTITIONER Ot Z85.038 PERSONAL HISTORY OF MALIGNANT NEOPLASM O 06/02/2016 DONNA VEGA REGISTERED NURSE PRACTITIONER Ot Z92.21 PERSONAL HISTORY OF ANTINEOPLASTIC CHEMO 06/02/2016 MINI TAVAREZ Ot Z08 ENCNTR FOR FOLLOW-UP EXAM AFTER TRTMT FO 06/02/2016 MINI TAVAREZ Ot Z80.0 FAMILY HISTORY OF MALIGNANT NEOPLASM OF 06/02/2016 MINI TAVAREZ Ot Z85.038 PERSONAL HISTORY OF MALIGNANT NEOPLASM O 06/02/2016 MINI TAVAREZ Ot Z86.010 PERSONAL HISTORY OF COLONIC POLYPS 06/02/2016 MINI TAVAREZ Ot Z92.21 PERSONAL HISTORY OF ANTINEOPLASTIC CHEMO 06/03/2016 DONNA VEGA REGISTERED NURSE PRACTITIONER Ot C18.7 MALIGNANT NEOPLASM OF SIGMOID COLON 06/03/2016 DONNA VEGA REGISTERED NURSE PRACTITIONER Ot D12.6 BENIGN NEOPLASM OF COLON, UNSPECIFIED 06/25/2016 MINI TAVAREZ Ot Z08 ENCNTR FOR FOLLOW-UP EXAM AFTER TRTMT FO 06/25/2016 MINI TAVAREZ Ot Z80.0 FAMILY HISTORY OF MALIGNANT NEOPLASM OF 06/25/2016 MINI TAVAREZ Ot Z85.038 PERSONAL HISTORY OF MALIGNANT NEOPLASM O 06/25/2016 MINI TAVAREZ Ot Z86.010 PERSONAL HISTORY OF COLONIC POLYPS 06/25/2016 MINI TAVAREZ Ot Z92.21 PERSONAL HISTORY OF ANTINEOPLASTIC CHEMO 06/25/2016 DONNA VEGAP Ot Z08 ENCNTR FOR FOLLOW-UP EXAM AFTER TRTMT FO 06/25/2016 DONNA VEGA REGISTERED NURSE PRACTITIONER Ot Z80.0 FAMILY HISTORY OF MALIGNANT NEOPLASM OF 06/25/2016 DONNA VEGA REGISTERED NURSE PRACTITIONER Ot Z85.038 PERSONAL HISTORY OF MALIGNANT NEOPLASM O 06/25/2016 DONNA VEGA REGISTERED NURSE PRACTITIONER Ot Z92.21 PERSONAL HISTORY OF ANTINEOPLASTIC CHEMO 06/25/2016 DONNA VEGA REGISTERED NURSE PRACTITIONER Ot Z08 ENCNTR FOR FOLLOW-UP EXAM AFTER [...] NEOPLASM O 08/04/2016 STAR MARQUEZ DO Ot D12.6 BENIGN NEOPLASM OF COLON, UNSPECIFIED 08/04/2016 STAR MARQUEZ DO, Ot K44.9 DIAPHRAGMATIC HERNIA WITHOUT OBSTRUCTION 08/04/2016 STAR MARQUEZ DO Ot Z08 ENCNTR FOR FOLLOW-UP EXAM AFTER TRTMT FO 08/04/2016 MARQUEZ DO, STAR D Ot Z80.0 FAMILY HISTORY OF MALIGNANT NEOPLASM OF 08/04/2016 MARQUEZ DO, STAR D Ot Z85.038 PERSONAL HISTORY OF MALIGNANT NEOPLASM O 08/05/2016 DONNA VEGA REGISTERED NURSE PRACTITIONER Ot C18.7 MALIGNANT NEOPLASM OF SIGMOID COLON 08/05/2016 DONNA VEGA REGISTERED NURSE PRACTITIONER Ot D12.6 BENIGN NEOPLASM OF COLON, UNSPECIFIED 08/07/2016 MARQUEZ DO STAR D Ot D12.6 BENIGN NEOPLASM OF COLON, UNSPECIFIED 08/07/2016 MARQUEZ DO, STAR D Ot K44.9 DIAPHRAGMATIC HERNIA WITHOUT OBSTRUCTION 08/07/2016 MARQUEZ DO, STAR D Ot Z08 ENCNTR FOR FOLLOW-UP EXAM AFTER TRTMT FO 08/07/2016 MARQUEZ DOSTAR D Ot Z80.0 FAMILY HISTORY OF MALIGNANT NEOPLASM OF 08/07/2016 MARQUEZ DO, STAR D Ot Z85.038 PERSONAL HISTORY OF MALIGNANT NEOPLASM O 08/27/2016 DONNA VEGA REGISTERED NURSE PRACTITIONER Ot C18.7 MALIGNANT NEOPLASM OF SIGMOID COLON 08/27/2016 DONNA VEGA REGISTERED NURSE PRACTITIONER Ot D12.6 BENIGN NEOPLASM OF COLON, UNSPECIFIED 08/28/2016 MARQUEZ DO STAR D Ot D12.6 BENIGN NEOPLASM OF COLON, UNSPECIFIED 08/28/2016 MARQUEZ DO, STAR D Ot K44.9 DIAPHRAGMATIC HERNIA WITHOUT OBSTRUCTION 08/28/2016 MARQUEZ DO, STAR D Ot Z08 ENCNTR FOR FOLLOW-UP EXAM AFTER TRTMT FO 08/28/2016 MARQUEZ DOSTAR D Ot Z80.0 FAMILY HISTORY OF MALIGNANT NEOPLASM OF 08/28/2016 MARQUEZ DOLYNNTT D Ot Z85.038 PERSONAL HISTORY OF MALIGNANT NEOPLASM O 11/25/2016 Ot 153.9 MALIGNANT ETTA COLON NOS 11/25/2016 ALLEN RIOS, TERESA Ot 153.9 MALIGNANT ETTA COLON NOS 11/25/2016 ALLEN RIOS, TERESA Ot 153.9 MALIGNANT ETTA COLON NOS 11/25/2016 [place] DOLYNNTT D Ot V72.84 EXAM PRE-OPERATIVE NOS 11/25/2016 MINI TAVAREZ Ot V10.05 11/25/2016 DONNA VEGA REGISTERED NURSE PRACTITIONER Ot Z08 ENCNTR FOR FOLLOW-UP EXAM AFTER TRTMT FO 11/25/2016 DONNA VEGA REGISTERED NURSE PRACTITIONER Ot Z85.038 PERSONAL HISTORY OF MALIGNANT NEOPLASM O 11/25/2016 DONNA VEGA REGISTERED NURSE PRACTITIONER Ot Z92.21 PERSONAL HISTORY OF ANTINEOPLASTIC CHEMO 11/25/2016 DONNA VEGA REGISTERED NURSE PRACTITIONER Ot Z08 ENCNTR FOR FOLLOW-UP EXAM AFTER TRTMT FO 11/25/2016 DONNA VEGA REGISTERED NURSE PRACTITIONER Ot Z80.0 FAMILY HISTORY OF MALIGNANT NEOPLASM OF 11/25/2016 DONNA VEGA REGISTERED NURSE PRACTITIONER Ot Z85.038 PERSONAL HISTORY OF MALIGNANT NEOPLASM O 11/25/2016 VEGAPKZARIA Garner REGISTERED NURSE PRACTITIONER Ot Z92.21 PERSONAL HISTORY OF ANTINEOPLASTIC CHEMO 11/25/2016 MINI TAVAREZ Ellie Ot Z08 ENCNTR FOR FOLLOW-UP EXAM AFTER TRTMT FO 11/25/2016 DAYSI MINI Ellie Ot Z80.0 FAMILY HISTORY OF MALIGNANT NEOPLASM OF 11/25/2016 DAYSI MINI Ellie Ot Z85.038 PERSONAL HISTORY OF MALIGNANT NEOPLASM O 11/25/2016 DAYSI MARLENENIMA Ellie Ot Z86.010 PERSONAL HISTORY OF COLONIC POLYPS 11/25/2016 MINI TAVAREZ Ellie Ot Z92.21 PERSONAL HISTORY OF ANTINEOPLASTIC CHEMO 11/25/2016 DONNA VEGA REGISTERED NURSE PRACTITIONER Ot C18.7 MALIGNANT NEOPLASM OF SIGMOID COLON 11/25/2016 DONNA VEGA REGISTERED NURSE PRACTITIONER Ot D12.6 BENIGN NEOPLASM OF COLON, UNSPECIFIED 12/09/2016 DONNA VEGA REGISTERED NURSE PRACTITIONER Ot C18.7 MALIGNANT NEOPLASM OF SIGMOID COLON 12/09/2016 DONNA VEGA REGISTERED NURSE PRACTITIONER Ot E04.2 NONTOXIC MULTINODULAR GOITER 12/24/2016 STAR MARQUEZ DO Ot D12.5 BENIGN NEOPLASM OF SIGMOID COLON 12/24/2016 STAR MARQUEZ DO Ot Z01.818 ENCOUNTER FOR OTHER PREPROCEDURAL EXAMIN 12/29/2016 STAR MARQUEZ DO Ot D12.7 BENIGN NEOPLASM OF RECTOSIGMOID JUNCTION 12/29/2016 STAR MARQUEZ DO Ot E66.9 OBESITY, UNSPECIFIED 12/29/2016 STAR MARQUEZ DO Ot K21.9 GASTRO-ESOPHAGEAL REFLUX DISEASE WITHOUT 12/29/2016 STAR MARQUEZ DO Ot Z08 ENCNTR FOR FOLLOW-UP EXAM AFTER TRTMT FO 12/29/2016 STAR MARQUEZ DO Ot Z68.31 BODY MASS INDEX (BMI) 31.0-31.9, ADULT 12/29/2016 MARQUEZ STAR ZAMAN Ot Z80.0 FAMILY HISTORY OF MALIGNANT NEOPLASM OF 12/29/2016 MARQUEZ STAR ZAMAN D Ot Z85.038 PERSONAL HISTORY OF MALIGNANT NEOPLASM O 01/04/2017 MARQUEZ STAR ZAMAN Ot D12.7 BENIGN NEOPLASM OF RECTOSIGMOID JUNCTION 01/04/2017 MARQUEZ STAR ZAMAN Ot E66.9 OBESITY, UNSPECIFIED 01/04/2017 MARQUEZ STAR ZAMAN Ot K21.9 GASTRO-ESOPHAGEAL REFLUX DISEASE WITHOUT 01/04/2017 MARQUEZ DOSTAR Ot Z08 ENCNTR FOR FOLLOW-UP EXAM AFTER TRTMT FO 01/04/2017 STAR MARQUEZ DO Ot Z68.31 BODY MASS INDEX (BMI) 31.0-31.9, ADULT 01/04/2017 MARQUEZ DOSTAR Ot Z80.0 FAMILY HISTORY OF MALIGNANT NEOPLASM OF 01/04/2017 [facility] PERSONAL HISTORY OF MALIGNANT NEOPLASM O 05/12/2017 Ot 153.9 MALIGNANT ETTA COLON NOS 05/12/2017 ALLEN RIOS, TERESA Ot 153.9 MALIGNANT ETTA COLON NOS 05/12/2017 ALLEN RIOS, TERESA Ot 153.9 MALIGNANT ETTA COLON NOS 05/12/2017 [place] STAR ZAMAN Rupinder Ot V72.84 EXAM PRE-OPERATIVE NOS 05/12/2017 MINI TAVAREZ Ot V10.05 05/12/2017 DONNA VEGA REGISTERED NURSE PRACTITIONER Ot Z08 ENCNTR FOR FOLLOW-UP EXAM AFTER TRTMT FO 05/12/2017 DONNA VEGAP Ot Z85.038 PERSONAL HISTORY OF MALIGNANT NEOPLASM O 05/12/2017 DONNA VEGA Ot Z92.21 PERSONAL HISTORY OF ANTINEOPLASTIC CHEMO 05/12/2017 DONNA VEGA REGISTERED NURSE PRACTITIONER Ot Z08 ENCNTR FOR FOLLOW-UP EXAM AFTER TRTMT FO 05/12/2017 DONNA VEGA REGISTERED NURSE PRACTITIONER Ot Z80.0 FAMILY HISTORY OF MALIGNANT NEOPLASM OF 05/12/2017 DONNA VEGAP Ot Z85.038 PERSONAL HISTORY OF MALIGNANT NEOPLASM O 05/12/2017 DONNA VEGA REGISTERED NURSE PRACTITIONER Ot Z92.21 PERSONAL HISTORY OF ANTINEOPLASTIC CHEMO 05/12/2017 MINI TAVAREZ Ot Z08 ENCNTR FOR FOLLOW-UP EXAM AFTER TRTMT FO 05/12/2017 MINI TAVAREZ Ot Z80.0 FAMILY HISTORY OF MALIGNANT NEOPLASM OF 05/12/2017 MINI TAVAREZ Ot Z85.038 PERSONAL HISTORY OF MALIGNANT NEOPLASM O 05/12/2017 MINI TAVAREZ Ot Z86.010 PERSONAL HISTORY OF COLONIC POLYPS 05/12/2017 MINI TAVAREZ Ot Z92.21 PERSONAL HISTORY OF ANTINEOPLASTIC CHEMO 05/12/2017 DONNA VEGA REGISTERED NURSE PRACTITIONER Ot C18.7 MALIGNANT NEOPLASM OF SIGMOID COLON 05/12/2017 DONNA VEGA REGISTERED NURSE PRACTITIONER Ot D12.6 BENIGN NEOPLASM OF COLON, UNSPECIFIED 05/12/2017 DONNA VEGA REGISTERED NURSE PRACTITIONER Ot C18.7 MALIGNANT NEOPLASM OF SIGMOID COLON 05/12/2017 DONNA VEGAP Ot E04.2 NONTOXIC MULTINODULAR GOITER 05/13/2017 Ot 153.9 MALIGNANT ETTA COLON NOS 05/13/2017 ALLEN RIOS, TERESA Ot 153.9 MALIGNANT ETTA COLON NOS 05/13/2017 ALLEN RIOS, TERESA Ot 153.9 MALIGNANT ETTA COLON NOS 05/13/2017 STAR MARQUEZ DO Ot V72.84 EXAM PRE-OPERATIVE NOS 05/13/2017 MINI TAVAREZ Ot V10.05 05/13/2017 DONNA VEGA REGISTERED NURSE PRACTITIONER Ot Z08 ENCNTR FOR FOLLOW-UP EXAM AFTER TRTMT FO 05/13/2017 DONNA VEGA REGISTERED NURSE PRACTITIONER Ot Z85.038 PERSONAL HISTORY OF MALIGNANT NEOPLASM O 05/13/2017 DONNA VEGA REGISTERED NURSE PRACTITIONER Ot Z92.21 PERSONAL HISTORY OF ANTINEOPLASTIC CHEMO 05/13/2017 DONNA VEGA REGISTERED NURSE PRACTITIONER Ot Z08 ENCNTR FOR FOLLOW-UP EXAM AFTER TRTMT FO 05/13/2017 DONNA VEGA REGISTERED NURSE PRACTITIONER Ot Z80.0 FAMILY HISTORY OF MALIGNANT NEOPLASM OF 05/13/2017 DONNA VEGA REGISTERED NURSE PRACTITIONER Ot Z85.038 PERSONAL HISTORY OF MALIGNANT NEOPLASM O 05/13/2017 DONNA VEGA REGISTERED NURSE PRACTITIONER Ot Z92.21 PERSONAL HISTORY OF ANTINEOPLASTIC CHEMO 05/13/2017 MINI TAVAREZ N Ot Z08 ENCNTR FOR FOLLOW-UP EXAM AFTER TRTMT FO 05/13/2017 MINI TAVAREZ N Ot Z80.0 FAMILY HISTORY OF MALIGNANT NEOPLASM OF 05/13/2017 MINI TAVAREZ N Ot Z85.038 PERSONAL HISTORY OF MALIGNANT NEOPLASM O 05/13/2017 MINI TAVAREZ N Ot Z86.010 PERSONAL HISTORY OF COLONIC POLYPS 05/13/2017 MINI TAVAREZ N Ot Z92.21 PERSONAL HISTORY OF ANTINEOPLASTIC CHEMO 05/13/2017 VEGADONNA S REGISTERED NURSE PRACTITIONER Ot C18.7 MALIGNANT NEOPLASM OF SIGMOID COLON 05/13/2017 VEGA HILAH S REGISTERED NURSE PRACTITIONER Ot D12.6 BENIGN NEOPLASM OF COLON, UNSPECIFIED 05/13/2017 VEGA HILAH S REGISTERED NURSE PRACTITIONER Ot C18.7 MALIGNANT NEOPLASM OF SIGMOID COLON 05/13/2017 DONNA VEGA S REGISTERED NURSE PRACTITIONER Ot E04.2 NONTOXIC MULTINODULAR GOITER 05/14/2017 MINI TAVAREZ Ellie Ot F32.9 MAJOR DEPRESSIVE DISORDER, SINGLE EPISOD 05/14/2017 IMNI TAVAREZ N Ot Z08 ENCNTR FOR FOLLOW-UP EXAM AFTER TRTMT FO 05/14/2017 MINI TAVAREZ N Ot Z80.0 FAMILY HISTORY OF MALIGNANT NEOPLASM OF 05/14/2017 MINI TAVAREZ N Ot Z85.038 PERSONAL HISTORY OF MALIGNANT NEOPLASM O 05/14/2017 MINI TAVAREZ N Ot Z86.010 PERSONAL HISTORY OF COLONIC POLYPS 05/14/2017 MINI TAVAREZ N Ot Z92.21 PERSONAL HISTORY OF ANTINEOPLASTIC CHEMO 08/11/2017 MINI TAVAREZ N Ot F32.9 MAJOR DEPRESSIVE DISORDER, SINGLE EPISOD 08/11/2017 MINI TAVAREZ N Ot Z08 ENCNTR FOR FOLLOW-UP EXAM AFTER TRTMT FO 08/11/2017 MINI TAVAREZ N Ot Z80.0 FAMILY HISTORY OF MALIGNANT NEOPLASM OF 08/11/2017 MINI TAVAREZ N Ot Z85.038 PERSONAL HISTORY OF MALIGNANT NEOPLASM O 08/11/2017 MINI TAVAREZ N Ot Z86.010 PERSONAL HISTORY OF COLONIC POLYPS 08/11/2017 MINI TAVAREZ N Ot Z92.21 PERSONAL HISTORY OF ANTINEOPLASTIC CHEMO 08/12/2017 MINI TAVAREZ N Ot F32.9 MAJOR DEPRESSIVE DISORDER, SINGLE EPISOD 08/12/2017 MINI TAVAREZ Ot Z08 ENCNTR FOR FOLLOW-UP EXAM AFTER TRTMT FO 08/12/2017 MINI TAVAREZ Ot Z80.0 FAMILY HISTORY OF MALIGNANT NEOPLASM OF 08/12/2017 MINI TAVAERZ Ot Z85.038 PERSONAL HISTORY OF MALIGNANT NEOPLASM O 08/12/2017 MINI TAVAREZ Ot Z86.010 PERSONAL HISTORY OF COLONIC POLYPS 08/12/2017 MINI TAVAREZ Ot Z92.21 PERSONAL HISTORY OF ANTINEOPLASTIC CHEMO Procedures Code Description Performed By Performed On [facility], 01/19/2014 63618 PAP SMEAR 01/30/2014 [id number] PAP SMEAR OBTAIN SMEAR 01/30/2014 44778 TEST, URINE (IN- HOUSE) 02/27/2014 37798 COLP W/ BX & ECC 02/27/2014 53213 ROUTINE VENIPUNCTURE 03/19/2014 45469 CBC 03/19/2014 [id number] ROUTINE VENIPUNCTURE 04/02/2014 [id number] CBC 04/02/2014 OBSTETRIC SERGEY ROD 04/11/2014 Obstetric Calli, Dennis 04/12/2014 [id number] H PYLORI (IN-HOUSE) 04/20/2014 Results Test Result Range Urine beta human chorionic gonadotropin (hCG) measurement - 08/04/16 07:20 Urine beta human chorionic gonadotropin (hCG) measurement NEGATIVE NEGATIVE Urine beta human chorionic gonadotropin (hCG) measurement - 12/29/16 10:15 Urine beta human chorionic gonadotropin (hCG) measurement NEGATIVE NEGATIVE Encounters ACCT No. Visit Date/Time Discharge Status Pt. Type Provider Facility Loc./Unit Complaint [id number] 08/15/2014 10:24:00 08/15/2014 23:59:59 CLS Outpatient MIRTAL THREAD WINDERJERICA ArguetaA L [id number] 04/20/2014 15:36:00 04/20/2014 23:59:59 CLS Outpatient MIRTAL THREAD WINDERJERICA ArguetaA L [id number] 04/10/2014 15:35:00 04/10/2014 23:59:59 CLS Outpatient MIRTAL THREAD WINDERJERICA ArguetaA L [id number] 04/02/2014 10:13:00 04/02/2014 23:59:59 CLS Outpatient MADL THREAD WINDERJERICA ArguetaA L [id number] 03/19/2014 11:21:00 03/19/2014 23:59:59 CLS Outpatient DANIELA CAMERON APRN [id number] 02/27/2014 13:11:00 02/27/2014 23:59:59 CLS Outpatient ELHAM GUNN MD [id number] 01/30/2014 09:24:00 01/30/2014 23:59:59 CLS Outpatient KRYSTYNA LOCK APRN [id number] 01/19/2014 08:43:00 01/19/2014 23:59:59 CLS Outpatient DANIELA CAMERON APRN [id number] 08/12/2017 00:22:00 08/12/2017 23:59:59 CLS Preadmit MINI TAVAREZ [facility] ONC [id number] 05/13/2017 09:32:00 08/11/2017 00:01:00 DIS Outpatient MINI TAVAREZ [facility] ONC [id number] 12/29/2016 09:57:00 12/29/2016 14:33:00 DIS Outpatient STAR MARQUEZ DO [facility] ENDO TUBULAR ADENORNA [id number] 12/24/2016 05:40:00 12/24/2016 11:13:00 DIS Outpatient STAR MARQUEZ DO [facility] PREOP TUBULAR ADENORNA [id number] 11/30/2016 10:44:00 11/30/2016 23:59:59 CLS Outpatient DONNA VEGA [facility] RAD COLORECTAL CA [id number] 08/04/2016 07:15:00 08/04/2016 09:15:00 DIS Outpatient STAR MARQUEZ DO [facility] ENDO HISTORY OF COLON CAN; FAP GENE POSITIVE [id number] 08/03/2016 11:00:00 08/03/2016 12:26:00 DIS Outpatient STAR MARQUEZ DO [facility] PREOP HX OF COLON CA/FAP GENE POSITIVE [id number] 06/02/2016 10:19:00 06/02/2016 23:59:59 CLS Outpatient DONNA VEGA REGISTERED NURSE PRACTITIONER [facility] RAD COLORECTAL CA [id number] 05/19/2016 12:32:00 05/19/2016 23:59:59 CLS Outpatient MINI TAVAREZ [facility] ONC [id number] 07/23/2015 06:50:00 07/23/2015 10:05:00 DIS [facility] [id number] 07/19/2015 05:40:00 07/19/2015 08:56:00 DIS Outpatient STAR MARQUEZ DO [facility] PREOP HX COLON CANCER [id number] 05/28/2015 12:59:00 05/28/2015 23:59:59 CLS Outpatient DONNA VEGA [facility] ONC [id number] 04/23/2015 12:48:00 04/23/2015 23:59:59 CLS Outpatient DONNA VEGA [facility] ONC [id number] 06/25/2014 00:12:00 06/25/2014 23:59:59 CLS Preadmit MINI TAVAREZ [facility] ONC [id number] 03/26/2014 13:32:00 06/24/2014 00:01:00 DIS Outpatient MINI TAVAREZ [facility] ONC [id number] 05/08/2014 12:36:00 05/08/2014 14:45:00 DIS Outpatient [facility] [id number] 05/02/2014 08:23:00 05/02/2014 23:59:59 CLS Outpatient STAR MARQUEZ DO [facility] PREOP HX COLON CANCER [id number] 03/14/2014 18:42:00 03/15/2014 08:55:00 DIS Outpatient DESTINI SMITH DO [facility] WSo VAG BLEED [id number] 12/26/2013 16:46:00 12/26/2013 23:59:59 CLS Outpatient TERESA VILLA MD [facility] LAB MALIGNANT NEOPLASM OF COLON [id number] 12/20/2012 10:41:00 12/20/2012 23:59:59 CLS Outpatient TERESA VILLA MD [facility] MALIGNANT NEOPLASM OF COLON [id number] 12/29/2017 12:08:00 Document Registration [id number] 12/21/2011 14:06:00 Document Registration [id number] 03/30/2011 09:13:00 Document Registration [id number] 12/12/2010 09:09:00 Document Registration [id number] 06/09/2010 11:19:00 Document Registration [id number] 12/09/2009 09:11:00 Document Registration [id number] 06/11/2009 09:13:00 Document Registration [id number] 06/10/2009 16:03:00 Document Registration [id number] 12/10/2008 09:29:00 Document Registration [id number] 12/07/2008 12:23:00 Document Registration [id number] 06/06/2017 13:10:00 06/06/2017 23:59:59 CLS Outpatient DANIELA CAMERON APRNK [facility]
[2018-01-18] MEDS ORDERED: proPOfol 200 MG/20 ML (DIPRIVAN) VIAL IV ONE ×2 (10:35→10:51)
--- NOTE | 2018-01-18 11:04 | Discharge Inst-Simple/Standard ---
Discharge Inst-Standard Patient Instructions/Follow Up Plan of Care/Instructions/FU: 2 weeks Johnathan Activity as Tolerated: Yes Discharge Diet: Regular Diet STAR MARQUEZ DO Jan 18, 2018 11:04
--- NOTE | 2018-01-18 11:06 | Progress Note-Post Operative ---
Post-Operative Progess Note Surgeon (s)/Sling Operator (s) Surgeon STAR MARQUEZ DO Sling Operator: na Pre-Operative Diagnosis fap history colon cancer, hx tubular adenoma Post-Operative Diagnosis rectal polyps Procedure & Operative Findings Date of Procedure 01/18/18 Procedure Performed/Findings flex sig c hot bx polypectomy x 4 Anesthesia Type per experimental aircraft mechanic Estimated Blood Loss Estimated blood loss (mL): none Specimens/Packing Specimens Removed rectal polyps STAR MARQUEZ DO Jan 18, 2018 11:06
[2018-01-18 11:20] VITALS: BP 128/74
[2018-01-18 11:40] VITALS: BP 115/81
[2018-01-18 11:50] VITALS: BP 115/81
--- NOTE | 2018-01-18 11:55 | Anesthesia-General Post-Op ---
MAC Patient Condition Mental Status/LOC: Same as Preop Cardiovascular: Satisfactory Nausea/Vomiting: Absent Respiratory: Satisfactory Pain: Controlled Complications: Absent Post Op Complications Complications None Follow Up Care/Instructions Patient Instructions None needed. Anesthesiology Discharge Order Discharge Order Patient is doing well, no complaints, stable vital signs, no apparent adverse anesthesia problems. No complications reported per nursing. FEMI GARCIA CRNA Jan 18, 2018 11:55
--- NOTE | 2018-01-18 18:20 | OPERATIVE REPORT ---
DATE OF SERVICE: 01/18/2018 PREOPERATIVE DIAGNOSES: Familial adenomatous polyposis, history of colon cancer, history of colon polyps. POSTOPERATIVE DIAGNOSIS: Colon polyps. PROCEDURE: Flexible sigmoidoscopy with hot biopsy polypectomy x4. SURGEON: Star Mann DO ANESTHESIA: Per OBSTETRICIAN GYNECOLOGIST. ESTIMATED BLOOD LOSS: None. COMPLICATIONS: None. INDICATIONS: The patient is a 32-year-old female who understands risks and benefits of procedure and wished to proceed with procedure. Consent was signed in the chart. DESCRIPTION OF PROCEDURE: The patient was taken to the endoscopy suite, placed in left lateral recumbent position. Timeout was performed. Digital rectal exam was performed. There were no palpable polyps, masses or ulcerations. The scope was inserted in the rectum and was advanced until encountering the J pouch. Both limbs of the J pouch were inspected. The blind pouch had normal appearance. No polyps, masses or ulcerations. The ileal limb was then continued to be inspected and the scope was continued to be inserted approximately 30 cm. The scope was then slowly retracted back. There were no polyps, masses or ulcerations within the ileal limb of the J pouch. Scope was continuously retracted back in the rectum, multiple others for small polyps, which hot biopsy polypectomies were performed. Scope was retroflexed noting no other pathology. Scope was returned to its normal position, slowly withdrawn until completely removed. The patient tolerated the procedure well without any complications. She was taken to recovery room in stable condition. RECOMMENDATIONS: The patient will need to follow up on pathology in 2 weeks. Would recommend repeat colonoscopy in one year unless she has any issues before that and should be seen and evaluated at that time. Job ID: [id number] DocumentID: [id number] Dictated Date: 01/18/2018 13:53:46 Pipe Processor Date: 01/18/2018 18:19:25 Dictated By: STAR MANN DO
== END 2018-01-18 12:00 | disposition home or self-care (01) ==
LOC: ENDO 08:18
PROVIDERS: ATTEND Surgery
DX: Z08 Encounter for follow-up examination after completed treatment for malignant neoplasm (principal); D12.8 Benign neoplasm of rectum; Z86.010 Personal history of colon polyps; Z85.038 Personal history of other malignant neoplasm of large intestine
CPT/HCPCS: 84703; 88305

== ENCOUNTER → 2018-05-17 | Outpatient (CLI) | payer SELFPAY ==
[2018-05-17 09:03] LABS: RED BLOOD COUNT 5.23 10^6/uL (4.35-5.85); WHITE BLOOD COUNT 4.6 10^3/uL (4.3-11.0)
[2018-05-17 09:04] LABS: BASOPHILS % (AUTO) 1 % (0-10); EOSINOPHILS # (AUTO) 0.1 10^3/uL (0.0-0.3); EOSINOPHILS % (AUTO) 2 % (0-10); HEMATOCRIT 38 % (35-52); LYMPHOCYTES # (AUTO) 1.6 X 10^3 (1.0-4.0); LYMPHOCYTES % (AUTO) 34 % (12-44); MEAN CORPUSCULAR HEMOGLOBIN 23 PG (25-34); MEAN CORPUSCULAR HGB CONC 31 G/DL (32-36); MEAN CORPUSCULAR VOLUME 73 FL (80-99); MONOCYTES # (AUTO) 0.4 X 10^3 (0.0-1.0); MONOCYTES % (AUTO) 8 % (0-12); NEUTROPHILS # (AUTO) 2.6 X 10^3 (1.8-7.8); NEUTROPHILS % (AUTO) 56 % (42-75); PLATELET COUNT 174 10^3/uL (130-400); RED CELL DISTRIBUTION WIDTH 14.8 % (10.0-14.5)
[2018-05-17 09:27] LABS: ALANINE AMINOTRANSFERASE 17 U/L (0-55); ALBUMIN 4.1 GM/DL (3.2-4.5); ALKALINE PHOSPHATASE 51 U/L (40-136); BUN/CREATININE RATIO 16; CALCIUM 8.8 MG/DL (8.5-10.1); CARBON DIOXIDE 25 MMOL/L (21-32); CHLORIDE 105 MMOL/L (98-107); CREATININE SERUM 0.83 MG/DL (0.60-1.30); GFR ESTIMATED > 60; GLUCOSE 101 MG/DL (70-105); SODIUM 138 MMOL/L (135-145); TOTAL PROTEIN 6.6 GM/DL (6.4-8.2)
== END ==
LOC: EDSTATUS 08-12 08:53 → ONC 08:56
PROVIDERS: ATTEND Internal Medicine Hematology & Oncology
DX: Z08 Encounter for follow-up examination after completed treatment for malignant neoplasm (principal); Z85.038 Personal history of other malignant neoplasm of large intestine; Z86.010 Personal history of colon polyps; Z80.0 Family history of malignant neoplasm of digestive organs; Z92.21 Personal history of antineoplastic chemotherapy; F32.9 Major depressive disorder, single episode, unspecified
CPT/HCPCS: 36415; 80053; 82378; 85025; 99213

== ENCOUNTER → 2018-05-27 | Outpatient (CLI) | payer OTHER ==
[~2018-05-27] MED LIST changes: +BARIUM SUSPENSION 2.1% (VANILLA SILQ) 450 ML PO ONE; +CATHETER FLUSH 10 ML SYR IV PRN; +IOHEXOL 350 MG/ML 100 ML (OMNIPAQUE 350) VIAL IV ONE; +NS 100 ML (IVPB) BAG IV ONE; +RECEIVED CONTRAST (Hold Metformin) IV SCH
--- NOTE | 2018-05-27 12:03 | Diagnostic Imaging Report ---
PROCEDURE: CT chest, abdomen, and pelvis with contrast. TECHNIQUE: Multiple contiguous axial images were obtained through the chest, abdomen, and pelvis after the administration of intravenous contrast. INDICATION: Colorectal carcinoma. Patient complains of low back pain and headache. COMPARISON: Correlation is made with prior chest CT from 12/12/[address] abdomen and pelvis from 06/02/2016. FINDINGS: CT chest: No axillary lymphadenopathy is seen. No hilar or mediastinal lymphadenopathy is detected. No pericardial or pleural fluid is seen. There is a tiny nodule in the left upper lobe, image 26, measuring 4 mm. This was not well seen on prior exam but could potentially be owing to slight differences in slice position. No other pulmonary nodules are identified. Central airways are patent. IMPRESSION: Left upper lobe micronodule, indeterminate. Continued CT followup is recommended to confirm stability. CT abdomen and pelvis: No discrete liver mass is seen. Gallbladder is unremarkable. No biliary ductal dilatation is seen. The pancreas is unremarkable. Spleen is enlarged at 15.1 cm. This compares with 12.4 cm on prior exam. No adrenal mass is identified. Kidneys are unremarkable. Aorta is nonaneurysmal. No central retroperitoneal or mesenteric lymphadenopathy is seen. Bowel loops are normal in caliber. There are postsurgical changes in the right lower quadrant. The uterus, ovaries, and bladder are grossly unremarkable. There are postsurgical changes in the pelvis. No definite inguinal or iliac lymphadenopathy is seen. IMPRESSION: 1. There has been development of splenomegaly since prior CT from 06/02/2016. Remainder of the abdomen and pelvis are unremarkable. No lymphadenopathy is detected. Dictated by: Dictated on workstation # [id number]
--- NOTE | 2018-05-27 18:07 | Diagnostic Imaging Report ---
INDICATION: Low back pain and colorectal carcinoma. TECHNIQUE: Patient was administered 26.8 mCi of technetium-99m MDP intravenously, and whole-body imaging was performed after a 3-hour delay. COMPARISON: No prior studies are available for comparison. FINDINGS: There is normal uptake of activity by the axial and appendicular skeleton. There is uptake by the kidneys with excretion into the urinary bladder. No abnormal foci of tracer accumulation is seen to suggest osseous metastatic disease. IMPRESSION: No scintigraphic evidence of osseous metastatic disease. Dictated by: Dictated on workstation # [id number]
== END ==
LOC: CARD 11:04
PROVIDERS: ATTEND Internal Medicine Hematology & Oncology
DX: C18.7 Malignant neoplasm of sigmoid colon (principal); M54.5 Low back pain; R16.1 Splenomegaly, not elsewhere classified; R91.1 Solitary pulmonary nodule
CPT/HCPCS: 71260; 74177; 78306

== ENCOUNTER → 2018-09-16 | Outpatient (CLI) | payer SELFPAY ==
[~2018-09-16] MED LIST changes: -BARIUM SUSPENSION 2.1% (VANILLA SILQ) 450 ML PO ONE; -CATHETER FLUSH 10 ML SYR IV PRN; -IOHEXOL 350 MG/ML 100 ML (OMNIPAQUE 350) VIAL IV ONE; -NS 100 ML (IVPB) BAG IV ONE; -RECEIVED CONTRAST (Hold Metformin) IV SCH
== END ==
LOC: ONC 08:46
PROVIDERS: ATTEND Internal Medicine Hematology & Oncology
DX: Z08 Encounter for follow-up examination after completed treatment for malignant neoplasm (principal); Z85.038 Personal history of other malignant neoplasm of large intestine; Z86.010 Personal history of colon polyps; F32.9 Major depressive disorder, single episode, unspecified; Z80.0 Family history of malignant neoplasm of digestive organs; Z92.21 Personal history of antineoplastic chemotherapy

== ENCOUNTER → 2018-10-14 | Outpatient (CLI) | payer OTHER ==
[~2018-10-14] MED LIST changes: +FERRIC CARBOXYMALTOSE (CANCER) 750 MG in NS (IVPB) CANCER CENTER 250 ML IV SCH
== END ==
LOC: ONC 14:15
PROVIDERS: ATTEND Internal Medicine Hematology & Oncology
DX: Z08 Encounter for follow-up examination after completed treatment for malignant neoplasm (principal); Z85.038 Personal history of other malignant neoplasm of large intestine; Z86.010 Personal history of colon polyps; F32.9 Major depressive disorder, single episode, unspecified; Z80.0 Family history of malignant neoplasm of digestive organs; Z92.21 Personal history of antineoplastic chemotherapy
CPT/HCPCS: 96365

== ENCOUNTER 2018-10-21 14:47 | Outpatient (RCR) | payer OTHER ==
[~2018-10-21 14:47] MED LIST changes: -FERRIC CARBOXYMALTOSE (CANCER) 750 MG in NS (IVPB) CANCER CENTER 250 ML IV SCH
[2018-10-21] MEDS ORDERED: FERRIC CARBOXYMALTOSE (CANCER) 750 MG in NS (IVPB) CANCER CENTER 250 ML IV SCH ×2 (15:00)
== END 2019-01-19 | disposition home or self-care (01) ==
LOC: ONC 14:47
PROVIDERS: ATTEND Internal Medicine Hematology & Oncology
DX: D50.0 Iron deficiency anemia secondary to blood loss (chronic) (principal); K90.9 Intestinal malabsorption, unspecified; K20.9 Esophagitis, unspecified; Z85.038 Personal history of other malignant neoplasm of large intestine; Z08 Encounter for follow-up examination after completed treatment for malignant neoplasm; Z79.899 Other long term (current) drug therapy
CPT/HCPCS: 96365

== ENCOUNTER 2019-02-14 05:39 | Outpatient (CLI) | payer OTHER ==
[~2019-02-14] VITALS: Ht 167.7 cm; Wt 96.8 kg
[2019-02-14] MEDS ORDERED: CETI10TA20 PO (15:51)
== END 2019-02-14 15:53 | disposition home or self-care (01) ==
LOC: PREOP 05:39
PROVIDERS: ATTEND Surgery
DX: Z01.818 Encounter for other preprocedural examination (principal)

== ENCOUNTER 2019-02-21 09:35 | Day surgery (SDC) | payer OTHER ==
[~2019-02-21] VITALS: Ht 167.7 cm; Wt 96.8 kg
[~2019-02-21 09:35] MED LIST changes: +CETI10TA20 PO
[2019-02-21] MEDS ORDERED: LACTATED RINGERS 1,000 ML IV ONE (09:44)
[2019-02-21] MEDS ORDERED: LACTATED RINGERS 1,000 ML IV STA (09:52)
[2019-02-21 10:08] VITALS: BP 131/83
[2019-02-21] MEDS ORDERED: PROMETHAZINE INJ 25 MG/ML (PHENERGAN) AMP IVP ONE (10:30)
[2019-02-21] MEDS ORDERED: fentaNYL INJECTION 100 MCG/2 ML AMP IVP ONE (10:30)
--- NOTE | 2019-02-21 11:01 | Progress Note-Pre Operative ---
Pre-Operative Progress Note H&P Reviewed The H&P was reviewed, patient examined and no changes noted. Date Seen by Provider: Feb 21, 2019 Time Seen by Provider: 11:00 Date H&P Reviewed: Feb 21, 2019 Time H&P Reviewed: 11:00 Pre-Operative Diagnosis: FAP, history colon cancer STAR MARQUEZ DO Feb 21, 2019 11:01
[2019-02-21] MEDS ORDERED: KETAMINE/NaCl 50 MG/5 ML SYRINGE ONE (11:26)
[2019-02-21] MEDS ORDERED: PROPOFOL INJECTION 50 ML IV ONE (11:26)
[2019-02-21] MEDS ORDERED: MIDAZOLAM 2 MG/2 ML (VERSED) VIAL ONE (11:26)
[2019-02-21 12:00] VITALS: BP 111/62
[2019-02-21 12:05] VITALS: BP 121/66
[2019-02-21 12:45] VITALS: BP 132/88
[2019-02-21 12:50] VITALS: BP 132/88
--- NOTE | 2019-02-21 13:15 | Progress Note-Post Operative ---
Post-Operative Progess Note Surgeon (s)/Sewing Department Supervisor (s) Surgeon STAR MARQUEZ DO Sewing Department Supervisor: na Pre-Operative Diagnosis FAP, history colon cancer Post-Operative Diagnosis rectal polyps Procedure & Operative Findings Date of Procedure 02/21/19 Procedure Performed/Findings flex sig and snare polypectomy x 4 Anesthesia Type per possum trapper Estimated Blood Loss Estimated blood loss (mL): scant Specimens/Packing Specimens Removed rectal polyp STAR MARQUEZ DO Feb 21, 2019 13:15
--- NOTE | 2019-02-21 13:16 | Discharge Inst-Simple/Standard ---
Discharge Inst-Standard Patient Instructions/Follow Up Plan of Care/Instructions/FU: 2 weeks Johnathan Activity as Tolerated: Yes Discharge Diet: Regular Diet STAR MARQUEZ DO Feb 21, 2019 13:16
--- NOTE | 2019-02-21 14:28 | Anesthesia-General Post-Op ---
MAC Patient Condition Mental Status/LOC: Same as Preop Cardiovascular: Satisfactory Nausea/Vomiting: Absent Respiratory: Satisfactory Pain: Controlled Complications: Absent Post Op Complications Complications None Follow Up Care/Instructions Patient Instructions None needed. Anesthesiology Discharge Order Discharge Order Patient is doing well, no complaints, stable vital signs, no apparent adverse anesthesia problems. No complications reported per nursing. HERBER GOMEZ CRNA Feb 21, 2019 14:28
--- NOTE | 2019-02-21 20:37 | OPERATIVE REPORT ---
DATE OF SERVICE: 02/21/2019 PREOPERATIVE DIAGNOSES: FAP, history of colon cancer. POSTOPERATIVE DIAGNOSIS: Rectal polyps. PROCEDURE: Flexible sigmoidoscopy with snare polypectomy x4. SURGEON: Star Mann DO ANESTHESIA: Per CERAMIC DESIGN ENGINEER. ESTIMATED BLOOD LOSS: Scant. COMPLICATIONS: None. INDICATIONS: The patient is a 33-year-old female with history of colon cancer and FAP. She understands the risks and benefits of procedure and she wished to proceed with procedure. Consent was signed in the chart. DESCRIPTION OF PROCEDURE: The patient was taken to the endoscopy suite, placed in left lateral recumbent position. Timeout was performed. A digital rectal exam was performed. There were no palpable polyps, masses or ulcerations. Scope was inserted in the rectum and advanced to anastomosis and both limbs of the small bowel and to the small bowel pouch. No polyps, masses or ulcerations within the small bowel. Scope was slowly retracted back into the staple line. Several small purplish appearing polyps were present, which snare polypectomy was performed on these, there were a total of 4 of them. Scope was then slowly retracted back and retroflexed noting no other pathology. Scope was returned to its normal position, slowly withdrawn until completely removed. The patient tolerated the procedure well without any complications. She was taken to recovery room in stable condition. RECOMMENDATIONS: The patient will follow up in the office in 2 weeks to discuss pathology results. She will need a repeat endoscopy in 1 year. Any problems before that, will be seen at that time. Job ID: [id number] DocumentID: [id number] Dictated Date: 02/21/2019 13:18:48 Raw Shellfish Preparer Date: 02/21/2019 20:36:26 Dictated By: STAR MANN DO
== END 2019-02-21 13:29 | disposition home or self-care (01) ==
LOC: ENDO 09:35
PROVIDERS: ATTEND Surgery
DX: Z12.11 Encounter for screening for malignant neoplasm of colon (principal); D50.9 Iron deficiency anemia, unspecified; K21.0 Gastro-esophageal reflux disease with esophagitis; F32.9 Major depressive disorder, single episode, unspecified; Z88.1 Allergy status to other antibiotic agents; Z83.71 Family history of colonic polyps; Z85.038 Personal history of other malignant neoplasm of large intestine; Z91.048 Other nonmedicinal substance allergy status; Z79.899 Other long term (current) drug therapy; Z83.3 Family history of diabetes mellitus; Z80.1 Family history of malignant neoplasm of trachea, bronchus and lung; Z82.49 Family history of ischemic heart disease and other diseases of the circulatory system; Z90.49 Acquired absence of other specified parts of digestive tract; Z88.8 Allergy status to other drugs, medicaments and biological substances
CPT/HCPCS: 84703

== ENCOUNTER → 2019-06-06 | Outpatient (CLI) | payer OTHER ==
[~2019-06-06] MED LIST changes: +BARIUM SUSPENSION 2.1% (VANILLA SILQ) 450 ML PO ONE; +HOLD METFORMIN - RECEIVED CONTRAST 20 ML VIAL IV SCH; +IOHEXOL 350 MG/ML 100 ML (OMNIPAQUE 350) VIAL IV ONE; +NS 100 ML (IVPB) BAG IV ONE
--- NOTE | 2019-06-06 11:30 | Diagnostic Imaging Report ---
PROCEDURE: CT chest, abdomen, and pelvis with contrast. TECHNIQUE: Multiple contiguous axial images were obtained through the chest, abdomen, and pelvis after the administration of intravenous contrast. Auto Exposure Controls were utilized during the CT exam to meet ALARA standards for radiation dose reduction. INDICATION: Lung nodule, follow-up rectal cancer. COMPARISON: May 27, 2018 and December 12, 2010. FINDINGS: No significant adenopathy within the chest. No aneurysmal dilatation of the thoracic aorta. The heart is within normal limits in size. No pericardial effusion. No pleural effusion. No pneumothorax. Stable sub-4 mm left upper lobe pulmonary nodule, axial image 51. The lungs are otherwise clear. No new pulmonary nodule. The trachea is patent. No acute osseous abnormality. The liver is unremarkable. The spleen is unremarkable and now within normal limits in size having slightly decreased in size since the prior examination. The adrenal glands are unremarkable. The pancreas is unremarkable. The kidneys are unremarkable. No aneurysmal dilatation of the abdominal aorta. The urinary bladder is unremarkable. The uterus and adnexal structures are unremarkable for age and appear stable from the prior examination. Postsurgical changes are again noted involving the rectum. Postsurgical changes are also again identified within the right lower quadrant. No bowel obstruction or pneumatosis. Overall configuration of the bowel appears stable from the prior exam. No significant adenopathy, free fluid, or free air. No acute osseous abnormality with mild scattered osseous degenerative changes. IMPRESSION: Stable sub-4 mm left upper lobe pulmonary nodule. Given patient history, a follow-up CT of the chest is recommended in one year to ensure ability. Stable-appearing postsurgical changes of the bowel without evidence of obstruction or new adenopathy. Interval resolution of previously noted splenomegaly with the spleen now being within normal limits in size. Additional stable findings as described above. Dictated by: Dictated on workstation # [id number]
== END ==
LOC: RAD 10:34
PROVIDERS: ATTEND Nurse Practitioner Adult Health
DX: C18.7 Malignant neoplasm of sigmoid colon (principal); R16.1 Splenomegaly, not elsewhere classified; R91.1 Solitary pulmonary nodule
CPT/HCPCS: 71260; 74177

== ENCOUNTER 2019-06-20 13:44 | Outpatient (RCR) | payer OTHER ==
[2019-05-30 09:16] LABS: BASOPHILS % (AUTO) 0 % (0-10); EOSINOPHILS # (AUTO) 0.1 10^3/uL (0.0-0.3); EOSINOPHILS % (AUTO) 2 % (0-10); HEMATOCRIT 45 % (35-52); HEMOGLOBIN 15.1 G/DL (11.5-16.0); LYMPHOCYTES # (AUTO) 1.7 X 10^3 (1.0-4.0); LYMPHOCYTES % (AUTO) 37 % (12-44); MEAN CORPUSCULAR HEMOGLOBIN 29 PG (25-34); MEAN CORPUSCULAR HGB CONC 33 G/DL (32-36); MEAN CORPUSCULAR VOLUME 87 FL (80-99); MEAN PLATELET VOLUME 11.2 FL (7.4-10.4); MONOCYTES # (AUTO) 0.4 X 10^3 (0.0-1.0); MONOCYTES % (AUTO) 8 % (0-12); NEUTROPHILS # (AUTO) 2.5 X 10^3 (1.8-7.8); NEUTROPHILS % (AUTO) 53 % (42-75); PLATELET COUNT 168 10^3/uL (130-400); RED CELL DISTRIBUTION WIDTH 12.6 % (10.0-14.5); WHITE BLOOD COUNT 4.6 10^3/uL (4.3-11.0)
[2019-05-30 09:45] LABS: ALANINE AMINOTRANSFERASE 11 U/L (0-55); ALBUMIN 4.2 GM/DL (3.2-4.5); ALKALINE PHOSPHATASE 57 U/L (40-136); BILIRUBIN,TOTAL 0.7 MG/DL (0.1-1.0); BUN/CREATININE RATIO 9; CARBON DIOXIDE 24 MMOL/L (21-32); CHLORIDE 105 MMOL/L (98-107); CREATININE SERUM 0.86 MG/DL (0.60-1.30); GFR ESTIMATED > 60; GLUCOSE 99 MG/DL (70-105); POTASSIUM 4.1 MMOL/L (3.6-5.0); SODIUM 139 MMOL/L (135-145); TOTAL PROTEIN 6.8 GM/DL (6.4-8.2)
[~2019-06-20 13:44] MED LIST changes: -BARIUM SUSPENSION 2.1% (VANILLA SILQ) 450 ML PO ONE; -CETI10TA20 PO; +CETI10TA21 PO; +FERRIC CARBOXYMALTOSE (CANCER) 750 MG in NS (IVPB) CANCER CENTER 250 ML IV SCH; -HOLD METFORMIN - RECEIVED CONTRAST 20 ML VIAL IV SCH; -IOHEXOL 350 MG/ML 100 ML (OMNIPAQUE 350) VIAL IV ONE; -NS 100 ML (IVPB) BAG IV ONE
== END 2019-08-28 | disposition home or self-care (01) ==
LOC: ONC 13:44
PROVIDERS: ATTEND Internal Medicine Hematology & Oncology
DX: D50.0 Iron deficiency anemia secondary to blood loss (chronic) (principal); K90.9 Intestinal malabsorption, unspecified; K20.9 Esophagitis, unspecified; Z85.038 Personal history of other malignant neoplasm of large intestine; Z08 Encounter for follow-up examination after completed treatment for malignant neoplasm; Z79.899 Other long term (current) drug therapy
CPT/HCPCS: 80053; 82378; 82728; 85025; 96365; 99213

== ENCOUNTER → 2020-09-19 | Outpatient (CLI) | payer OTHER ==
[~2020-09-19] MED LIST changes: -CETI10TA21 PO; +CETI10TA49 PO; -FERRIC CARBOXYMALTOSE (CANCER) 750 MG in NS (IVPB) CANCER CENTER 250 ML IV SCH
[2020-09-19 14:27] LABS: BASOPHILS # (AUTO) 0.1 10^3/uL (0.0-0.1); BASOPHILS % (AUTO) 1 % (0-10); EOSINOPHILS # (AUTO) 0.1 10^3/uL (0.0-0.3); EOSINOPHILS % (AUTO) 2 % (0-10); HEMATOCRIT 44 % (35-52); HEMOGLOBIN 13.8 g/dL (11.5-16.0); LYMPHOCYTES # (AUTO) 2.3 10^3/uL (1.0-4.0); LYMPHOCYTES % (AUTO) 42 % (12-44); MEAN CORPUSCULAR HEMOGLOBIN 25 pg (25-34); MEAN CORPUSCULAR HGB CONC 31 g/dL (32-36); MEAN CORPUSCULAR VOLUME 81 fL (80-99); MEAN PLATELET VOLUME 11.2 fL (9.0-12.2); MONOCYTES # (AUTO) 0.4 10^3/uL (0.0-1.0); MONOCYTES % (AUTO) 7 % (0-12); NEUTROPHILS # (AUTO) 2.7 10^3/uL (1.8-7.8); NEUTROPHILS % (AUTO) 48 % (42-75); PLATELET COUNT 205 10^3/uL (130-400); WHITE BLOOD COUNT 5.5 10^3/uL (4.3-11.0)
[2020-09-19 14:49] LABS: ALANINE AMINOTRANSFERASE 12 U/L (0-55); ALBUMIN 4.2 GM/DL (3.2-4.5); ALKALINE PHOSPHATASE 73 U/L (40-136); BILIRUBIN,TOTAL 0.8 MG/DL (0.1-1.0); BUN/CREATININE RATIO 11; CALCIUM 8.7 MG/DL (8.5-10.1); CARBON DIOXIDE 29 MMOL/L (21-32); CHLORIDE 107 MMOL/L (98-107); CREATININE SERUM 0.84 MG/DL (0.60-1.30); GFR ESTIMATED > 60; GLUCOSE 130 MG/DL (70-105); POTASSIUM 3.5 MMOL/L (3.6-5.0); SODIUM 138 MMOL/L (135-145)
== END ==
LOC: EDSTATUS 08-29 12:28 → ONC 14:05
PROVIDERS: ATTEND Internal Medicine Hematology & Oncology
DX: E61.1 Iron deficiency (principal); R16.1 Splenomegaly, not elsewhere classified; Z85.038 Personal history of other malignant neoplasm of large intestine; Z80.0 Family history of malignant neoplasm of digestive organs; Z90.49 Acquired absence of other specified parts of digestive tract; Z92.21 Personal history of antineoplastic chemotherapy; Z93.2 Ileostomy status
CPT/HCPCS: 80053; 82378; 82728; 85025; G0463; 99213

== ENCOUNTER → 2020-10-10 | Outpatient (CLI) | payer SELFPAY ==
[~2020-10-10] MED LIST changes: +CATHETER FLUSH 10 ML SYR IV PRN; +HOLD METFORMIN - RECEIVED CONTRAST 20 ML VIAL IV SCH; +IOHEXOL 350 MG/ML 100 ML (OMNIPAQUE 350) VIAL IV ONE; +NS 100 ML (IVPB) BAG IV ONE
--- NOTE | 2020-10-10 18:21 | Diagnostic Imaging Report ---
PROCEDURE: CT chest with contrast only. TECHNIQUE: Multiple contiguous axial images were obtained through the chest after administration of intravenous contrast. Auto Exposure Controls were utilized during the CT exam to meet ALARA standards for radiation dose reduction. INDICATION: Pulmonary nodule. COMPARISON: Prior examination from 06/06/2019. FINDINGS: There is an unchanged tiny pulmonary nodule in the left upper lobe. There are no other discrete pulmonary nodules, masses or infiltrates. There is no pleural or pericardial fluid. There is no pneumothorax. Heart size is normal. There is no pathologically enlarged adenopathy in the chest. Visualized intra-abdominal structures are unremarkable. The osseous structures are unremarkable. IMPRESSION: Stable tiny 3 mm nodule in the left upper lobe. Otherwise unremarkable CT chest. Dictated by: Dictated on workstation # [id number]
== END ==
LOC: RAD 16:32
PROVIDERS: ATTEND Internal Medicine Hematology & Oncology
DX: R91.1 Solitary pulmonary nodule (principal); Z85.038 Personal history of other malignant neoplasm of large intestine
CPT/HCPCS: 71260

== ENCOUNTER 2020-12-06 14:55 | Outpatient (RCR) | payer SELFPAY ==
[~2020-12-06 14:55] MED LIST changes: -CATHETER FLUSH 10 ML SYR IV PRN; +FERRIC CARBOXYMALTOSE (CANCER) 750 MG in NS (IVPB) CANCER CENTER 250 ML IV SCH; -HOLD METFORMIN - RECEIVED CONTRAST 20 ML VIAL IV SCH; -IOHEXOL 350 MG/ML 100 ML (OMNIPAQUE 350) VIAL IV ONE; -NS 100 ML (IVPB) BAG IV ONE
[2021-01-03] MEDS ORDERED: FERRIC CARBOXYMALTOSE (CANCER) 750 MG in NS (IVPB) CANCER CENTER 250 ML IV SCH (15:07)
== END 2021-02-27 ==
LOC: ONC 14:55
PROVIDERS: ATTEND Internal Medicine Hematology & Oncology
DX: Z85.038 Personal history of other malignant neoplasm of large intestine (principal)
CPT/HCPCS: 96365